=== PATIENT | male | born 1950 | race American Indian/Alaskan Native ===

== ENCOUNTER 2019-03-02 03:24 | Inpatient (IN) | payer MEDICARE, OTHER, SELFPAY ==
[2019-03-02] VITALS (26 sets, daily range): BP systolic 103–134; BP diastolic 69–87; PULSE 58–85; RESP 7–23; TEMP 36.1–37.1; O2SAT 99–100; BMI 19.7
--- NOTE | 2019-03-02 06:22 | PM.HP.1 ---
History of Present Illness Date Patient Seen: 03/02/19 Time Patient Seen: 05:30 Chief complaint: Direct Admit - Alcohol withdrawal Narrative: Maverick Lopez is a 68-year-old male who was a direct admission/transfer from the [facility] emergency department. Request for transfer has been made due to the the patient being intubated and no beds are available in the [facility] intensive care unit. Per the emergency department provider Dr. Wero Tejeda, the patient was found by his to be irritable and with tremors. Per the , the patient drinks approximately 1 pint of whiskey per day and he stopped drinking 3 days ago. She contacted EMS they came and saw the patient and they administered 4 mg of Versed on the way to the hospital. At that time they reported he was hypoxic, tachycardic, and tachypneic and arrived to the emergency department with a Jone coma Scale of 6. Patient History Medical History (Updated 03/02/19 @ 07:21 by HENRY Montgomery) TYRESE (acute kidney injury) (Acute) Hypokalemia (Acute) Alcohol withdrawal seizure with delirium (Acute) Essential hypertension (Acute) Surgical History (Updated 03/02/19 @ 06:25 by HENRY Montgomery) History of appendectomy (Inactive) Meds Home Medications Medication Instructions Recorded Confirmed Type cyclobenzaprine 10 mg PO TID PRN 03/02/19 03/02/19 History diltiazem HCl [DILT-XR] 240 mg PO DAILY 03/02/19 03/02/19 History hydrochlorothiazide 12.5 mg PO DAILY 03/02/19 03/02/19 History losartan 100 mg PO DAILY 03/02/19 03/02/19 History Review of Systems Review of Systems due to endotracheal tube Exam Const General: lethargic and patient mechanically ventilated Nutritional Appearance: average body habitus Orientation: obtunded Limitations: altered mental status HENDC Head: normocephalic Nose: external nose normal Face and sinus: normal facial exam Eyes Pupils: not reactive and pinpoint Neck Neck: normal visual inspection and trachea midline Chest Chest: normal inspection of the chest Resp Effort & Inspection: other (Ventilated) Auscultation: rales bilaterally Cardio Rate: regular rate Rhythm: regular rhythm GI Inspection: normal to inspection Palpation: soft Auscultation: hypoactive bowel sounds Skin General: no rashes or lesions noted, No turgor normal, dry skin and cool/cold (hands bilaterally) Neuro General: obtunded and unable to assess gait Motor: tremor (bilateral hands, twitching of toes bilaterally) Comatose Patient: response to noxious stimuli absent Pupils: Pinpoint: bilateral and Fixed/non-reactive: bilateral Extrem General: normal to inspection Psych Speech and Movement: other (Non-verbal due to sedation) Objective Labs Result Diagrams: 03/02/19 07:20 03/02/19 07:07 Labs: Labs from [facility]: CBC: WBC: 14.0, RBC: 3.63, hemoglobin: 12.2, hematocrit: 37, MCV: 101.9, MCH: 33.6, platelet count: 319 CMP: Sodium: 138, potassium: 2.5, chloride: 96, CO2: 10, anion gap: 32, BUN: 38, creatinine: 2.4, estimated GFR: 27, glucose: 210, calcium: 8.1, total bilirubin: 1.0, AST: 52, ALT: 30, alk-phos: 40, total protein: 8.2, albumin: 3.9, globulin: 4.3, albumin/globulin ratio: 0.9, lipase: 346 Lactic acid: 10.0, TSH: 1.04 UA is negative for UTI with exception abnormal amount of blood Assessment & Plan (1) Hypokalemia: Current visit: Yes Status: Acute (2) TYRESE (acute kidney injury): Current visit: Yes Status: Acute Assessment & Plan narrative: Juan Manuel Lopez is a 68-year-old male who is directly transferred from [facility] Emergency Department for acute alcohol withdrawal requiring sedation and intubation. He has matted to the ICU. 1. Acute alcoholic withdrawal, seizures and tremors, present on admission patient is admitted to the ICU, intubated and on a propofol drip, weaning trial to be determined by the day [facility] protocol 24 hour soft restraints to be renewed daily per provider Patient received Versed in the initial transport to [facility] and at that time his Jone coma Scale was 6. Current [place] coma scale is calculated to be 5. Patient received most of 1 banana bag that was initiated in the [facility] ED. He will continue daily supplementation with niacin, folic acid, and thiamine through his OG tube. Vent settings initiated at [facility] was SIMV mode, FiO2: 100, VT: 550, PEEP: 5, pressure support: 10, respirations: 16 2. Sepsis likely secondary to pneumonia and acute alcohol withdrawal with a SOFA score of 6 X-ray indicates that the patient likely aspirated. Patient will receive IV ceftriaxone 1 g daily and IV azithromycin 500 mg once daily and clindamycin 600 mg IV q.6 hours Repeat lactic acid, CBC and CMP this morning Respiratory panel ordered for this patient MRSA screen pending 3. Acute kidney injury with a creatinine of 2.5, present on admission Patient will be aggressively hydrated and his renal function monitored on a daily basis. It is unknown if this is his baseline. 4. Hypokalemia, acute, present on admission Patient received KCl 30 mEq on route, probably verbal order order per [facility] MD. This was not documented as and administered medication on their transfer paperwork. Repeat CMP this morning and address if needed. 5. Elevated glucose, new, acute, present on admission Patient is NPO and will have glucose checks q.6 hours Low-dose correctional insulin q.6 hours 6. Essential hypertension, chronic, not present on admission Antihypertensive medications are held. Current prescriptions were documented in the chart by nursing from bottles that were brought with the patient by EMS. We will need to obtain old records from the patient's current PCP. Patient is admitted inpatient as his/her stay is anticipated to exceed 2 midnights. FEN: IV normal saline at 175 mL/hour, NPO, CMP is pending this morning VTE Prophylaxis: Heparin 5000 units b.i.d. Enoxaparin not indicated due to current renal function. Disposition: Unknown at this time Code status: Full Code Admission time: 90 minutes Meds reconciled: Partial based on medications sent with the patient. Time Spent With Patient Time with patient: 15-24 minutes Scores GCS Jone coma scale eye opening: None [place] coma scale verbal response: None [place] coma scale motor response: Abnormal flexion [place] coma scale total score: 5 SOFA PaO2/FIO2: >=400 mmHg Platelets: >= 150 Bilirubin: < 1.2 mg/dL Hypotension: MAP >= 70 mmHg Jone Coma Scale: <6 Renal: Creatinine 2.0-3.4 mg/dL SOFA Score: 6 Quality VTE Deep Vein Thrombosis/Pulmonary Embolism Present on Admission: No
--- NOTE | 2019-03-02 06:27 | P.HP_ITS ---
History of Present Illness Date Patient Seen: 03/02/19 Time Patient Seen: 05:30 Chief complaint: Direct Admit - Alcohol withdrawal Narrative: Maverick Lopez is a 68-year-old male who was a direct admission/transfer from the [facility] emergency department. Request for transfer has been made due to the the patient being intubated and no beds are available in the [facility] intensive care unit. Per the emergency department provider Dr. Wero Tejeda, the patient was found by his to be irritable and with tremors. Per the , the patient drinks approximately 1 pint of whiskey per day and he stopped drinking 3 days ago. She contacted EMS they came and saw the patient and they administered 4 mg of Versed on the way to the hospital. At that time they reported he was hypoxic, tach ycardic, and tachypneic and arrived to the emergency department with a Jone coma Scale of 6. Patient History Medical History (Updated 03/02/19 @ 07:21 by HENRY Montgomery) TYRESE (acute kidney injury) (Acute) Hypokalemia (Acute) Alcohol withdrawal seizure with delirium (Acute) Essential hypertension (Acute) Surgical History (Updated 03/02/19 @ 06:25 by HENRY Montgomery) History of appendectomy (Inactive) Meds Home Medications Medication Instructions Recorded Confirmed Type cyclobenzaprine 10 mg PO TID PRN 03/02/19 03/02/19 History diltiazem HCl [DILT-XR] 240 mg PO DAILY 03/02/19 03/02/19 History hydrochlorothiazide 12.5 mg PO DAILY 03/02/19 03/02/19 History losartan 100 mg PO DAILY 03/02/19 03/02/19 History Review of Systems Review of Systems due to endotracheal tube Exam Const General: lethargic and patient mechanically ventilated Nutritional Appearance: average body habitus Orientation: obtunded Limitations: altered mental status HENWI Head: normocephalic Nose: external nose normal Face and sinus: normal facial exam Eyes Pupils: not reactive and pinpoint Neck Neck: normal visual inspection and trachea midline Chest Chest: normal inspection of the chest Resp Effort & Inspection: other (Ventilated) Auscultation: rales bilaterally Cardio Rate: regular rate Rhythm: regular rhythm GI Inspection: normal to inspection Palpation: soft Auscultation: hypoactive bowel sounds Skin General: no rashes or lesions noted, No turgor normal, dry skin and cool/cold (hands bilaterally) Neuro General: obtunded and unable to assess gait Motor: tremor (bilateral hands, twitching of toes bilaterally) Comatose Patient: response to noxious stimuli absent Pupils: Pinpoint: bilateral and Fixed/non-reactive: bilateral Extrem General: normal to inspection Psych Speech and Movement: other (Non-verbal due to sedation) Objective Labs Result Diagrams: 03/02/19 07:20 03/02/19 07:07 Labs: Labs from [facility]: CBC: WBC: 14.0, RBC: 3.63, hemoglobin: 12.2, hematocrit: 37, MCV: 101.9, MCH: 33.6, platelet count: 319 CMP: Sodium: 138, potassium: 2.5, chloride: 96, CO2: 10, anion gap: 32, BUN: 38, creatinine: 2.4, estimated GFR: 27, glucose: 210, calcium: 8.1, total bilirubin: 1.0, AST: 52, ALT: 30, alk-phos: 40, total protein: 8.2, albumin: 3.9, globulin: 4.3, albumin/globulin ratio: 0.9, lipase: 346 Lactic acid: 10.0, TSH: 1.04 UA is negative for UTI with exception abnormal amount of blood Assessment & Plan (1) Hypokalemia: Current visit: Yes Status: Acute (2) TYRESE (acute kidney injury): Current visit: Yes Status: Acute Assessment & Plan narrative: Juan Manuel Lopez is a 68-year-old male who is directly transferred from [facility] Emergency Department for acute alcohol withdrawal requiring sedation and intubation. He has matted to the ICU. 1. Acute alcoholic withdrawal, seizures and tremors, present on admission * patient is admitted to the ICU, intubated and on a propofol drip, weaning trial to be determined by the day hospitalist * [place] protocol * 24 hour soft restraints to be renewed daily per provider * Patient received Versed in the initial transport to [facility] and at that time his Jone coma Scale was 6. Current [place] coma scale is calculated to be 5. * Patient received most of 1 banana bag that was initiated in the [facility] ED. He will continue daily supplementation with niacin, folic acid, and thiamine through his OG tube. * Vent settings initiated at [facility] was SIMV mode, FiO2: 100, VT: 550, PEEP: 5, pressure support: 10, respirations: 16 2. Sepsis likely secondary to pneumonia and acute alcohol withdrawal with a SOFA score of 6 * X-ray indicates that the patient likely aspirated. * Patient will receive IV ceftriaxone 1 g daily and IV azithromycin 500 mg once daily and clindamycin 600 mg IV q.6 hours * Repeat lactic acid, CBC and CMP this morning * Respiratory panel ordered for this patient * MRSA screen pending 3. Acute kidney injury with a creatinine of 2.5, present on admission * Patient will be aggressively hydrated and his renal function monitored on a daily basis. * It is unknown if this is his baseline. 4. Hypokalemia, acute, present on admission * Patient received KCl 30 mEq on route, probably verbal order order per [facility] MD. This was not documented as and administered medication on their transfer paperwork. * Repeat CMP this morning and address if needed. 5. Elevated glucose, new, acute, present on admission * Patient is NPO and will have glucose checks q.6 hours * Low-dose correctional insulin q.6 hours 6. Essential hypertension, chronic, not present on admission * Antihypertensive medications are held. * Current prescriptions were documented in the chart by nursing from at were brought with the patient by EMS. * We will need to obtain old records from the patient's current PCP. Patient is admitted inpatient as his/her stay is anticipated to exceed 2 midnights. FEN: IV normal saline at 175 mL/hour, NPO, CMP is pending this morning VTE Prophylaxis: Heparin 5000 units b.i.d. Enoxaparin not indicated due to current renal function. Disposition: Unknown at this time Code status: Full Code Admission time: 90 minutes Meds reconciled: Partial based on medications sent with the patient. Time Spent With Patient Time with patient: 15-24 minutes Scores GCS Jone coma scale eye opening: None Jone coma scale verbal response: None [place] coma scale motor response: Abnormal flexion [place] coma scale total score: 5 SOFA PaO2/FIO2: >=400 mmHg Platelets: >= 150 Bilirubin: < 1.2 mg/dL Hypotension: MAP >= 70 mmHg Jone Coma Scale: <6 Renal: Creatinine 2.0-3.4 mg/dL SOFA Score: 6 Quality VTE Deep Vein Thrombosis/Pulmonary Embolism Present on Admission: No
--- NOTE | 2019-03-02 06:47 | PC.NURSE ---
Patient is direct admit from [facility], arrived to ICU at 0530. Vented FIO2 40% TV 550 PEEP 5 RR 14, ETT 7.5, 26 at teeth. Propofol gtt set at 30mcg/kg/min. NS at 125ml/hr initially until Angelic FIGUEROA enters admit orders, she is in room with patient. SR, BP 125/80, afebrile, SpO2 100%, breath sounds slightly coarse but clear. OGT to Sunni GUTIERREZ patent with clear UOP. Clothes and medical cards in closet, medications sent to pharmacy. No family available at this time. Soft wrist restraints on.
[2019-03-02 07:31] LABS: Add Manual Diff / Slide Review NO; Basophils Absolute Auto 0 /uL (0-100); Basophils Percent Auto 0.1 % (0-2); Eosinophils Absolute Auto 0 /uL (0-450); Eosinophils Percent Auto 0.1 % (2-4); Hemoglobin 11.2 g/dL (13.5-17.5); Lymphocytes Absolute Auto 1100 /uL (1100-4500); Lymphocytes Percent Auto 6.6 % (25-40); Mean Corpuscular Hemoglobin 33.9 PG (26-34); Mean Corpuscular Volume 99.7 fL (80-100); Monocytes Absolute Auto 1000 /uL (0-900); Monocytes Percent Auto 5.5 % (3-14); Neutrophils Absolute Auto 15100 /uL (1500-7000); Neutrophils Percent Auto 87.7 % (50-75); Platelet Count 245 X10^3/uL (150-400); Red Blood Cell Count 3.31 X10^6/uL (4.5-5.9); Red Cell Distribution Width 12.4 % (11.6-14.8); White Blood Cell Count 17.2 X10^3/uL (4.5-11.0)
[2019-03-02 07:34] LABS: Lactate (Lactic Acid) 1.3 mmol/L (0.7-2.1)
[2019-03-02 07:35] LABS: Alanine Aminotransferase 27 IU/L (21-72); Albumin 3.9 g/dL (3.5-5.0); Albumin Globulin Ratio 1.3 (1.0-2.8); Alkaline Phosphatase 41 U/L (38-126); Aspartate Aminotransferase 37 IU/L (17-59); BUN Creatinine Ratio 20.7 (6-22); Bilirubin Total 0.8 mg/dL (0.2-1.3); Blood Urea Nitrogen 29 mg/dL (9-20); Calcium 7.4 mg/dL (8.4-10.2); Carbon Dioxide 21 mmol/L (22-32); Chloride 103 mmol/L (98-107); Estimated Glomerular Filt Rate 50.7 mL/min (>60); Globulin 3.1 g/dL (1.7-4.1); Glucose 74 mg/dL (80-110); HEMOLYSIS < 15 (0-50); Sodium 142 mmol/L (137-145)
[2019-03-02] MEDS: SODIUM CHLORIDE 0.9% 1,000 ML 175 ML IV (07:42)
[2019-03-02] MEDS: PANTOPRAZOLE 40 MG VIAL IV (07:42)
[2019-03-02 07:43] LABS: Influenza A and B by PCR Rapid Negative (Negative)
[2019-03-02] MEDS: HEPARIN 5,000 UNIT/ML VIAL 5000 UNIT SUBCUT ×2 (07:44→20:31)
[2019-03-02] MEDS: AZITHROMYCIN 500 MG in DEXTROSE 5% IN WATER 250 ML IV (07:44)
[2019-03-02 07:56] LABS: Potassium 2.1 mmol/L (3.4-5.1)
[2019-03-02 07:58] LABS: Procalcitonin 0.23 ng/mL (<0.5)
--- NOTE | 2019-03-02 08:10 | DI.RAD.S_ITS ---
PROCEDURE: XR CHEST 1V INDICATIONS: check OG tube/check atelectasis TECHNIQUE: One view of the chest was acquired. COMPARISON: None. FINDINGS: Surgical changes and devices: Tip of ETT is 40 mm above the sabino. NGT extends to the gastroesophageal junction. Lungs and pleura: Lungs are clear. No pleural effusions or pneumothorax. Mediastinum: Mediastinal contours appear normal. Heart size is normal. Bones and chest wall: No suspicious bony lesions. Overlying soft tissues appear unremarkable. IMPRESSION: 1. ETT is an infected location. 2. Tip of the NGT is at the gastroesophageal junction. Dictated by: Arlet Sanderson M.D. on 03/02/2019 at 7:28 Approved by: Arlet Sanderson M.D. on 03/02/2019 at 7:29
[2019-03-02] MEDS: LORazepam 2 MG/ML INJ IV ×4 (08:17→23:30)
[2019-03-02] MEDS: PROPOFOL 1,000 MG/100 ML VIAL 9.075 MG IV (08:33)
[2019-03-02] MEDS: POTASSIUM CHLORIDE IV (08:35)
[2019-03-02] MEDS: SODIUM CHLORIDE 0.9% IV (08:35)
--- NOTE | 2019-03-02 08:35 | CM.DANOTE ---
Addendum entered by ALMA Wall 03/02/19 09:57: ADD: Per MD and RT, reducing pt's sedation to trial possible extubation today. Pt's acute renal failure improving with fluids and unclear if pt has pneumonia but will scan pt again to confirm. SW called pt's spouse Abbie at home and explained role and spouse was very talkative and appreciative of the call. Spouse confirms that pt is typically Independent with ADL's at baseline and drives and does not sound like he is currently working. PCP is Dr. Niels Stinson at [facility]. Pt has no hx of withdrawals or need of intubation in the past and spouse was quite shocked at how sick the pt currently is. Spouse was informative and direct with discussing her and the pt's regular evening drinking together and confirms that she feels that they drink too much. Pt typically drinks about a pint of whiskey with coke a night but recently has increased his amount of alcohol. Pt also smokes marijuana regularly to help with his chronic back/neck pain but denies any further drug use. Pt has no hx of alcohol treatment and is not enrolled in any supportive services like counseling although he participates in Physical Therapy for chronic pain. Spouse states that she noticed pt's decline in health starting about a week ago with become more tremulous and weak and about 3 days ago was not eating or drinking much and was at that point not even drinking alcohol. Pt couldn't ambulate on his own and spouse had to help him with urinating and pt's urine was getting darker in color and pt appeared to be having some visual hallucinations. EMS was finally called and pt was brought to [facility] and intubated. Spouse not planning to be bedside today as she has not slept much in the past couple days and currently has a healing dislocated shoulder due to a fall. Plan: SW to follow closely after pt extubated for bedside assessment for d/c planning needs and possible resources for alcohol support. ALMA Wall Original Note: Patient is a 68 year old male who was admitted early this morning 03/02/19 for Alcohol Withdrawal. Pt has [facility] and [facility] for insurance and his PCP is not listed. EMR was reviewed. Per MD, pt was a direct admit from [facility] as pt was intubated due to alcohol withdrawal symptoms affecting his airways. Per RN, pt currently still intubated with possible attempt at extubation later today and currently on propofol. No family bedside at this time. Plan: SW to follow for d/c planning discussion with family while waiting for extubation and CD assessment with pt when medically appropriate. ALMA Wall Discharge Planning/Care Management CM Discharge Assessment Start: 03/02/19 08:33 Freq: Status: Active Protocol: Document 03/02/19 08:33 BF (Rec: 03/02/19 08:35 BF [id number]) Discharge Planning Assessment Assigned Learning Center Instructor ALMA Longoria Advance Directives? No History Provided By Significant Other Medical Record Has Patient been admitted in last 30 No days? Prior Living Arrangements House Household Members spouse Type of transporation used prior to Drives own vehicle admit Independent with ADL's Yes Is patient alert and oriented? Yes Caregiver for Another No Comment Pending pt's medical course Discharge Plan Home Transportation Arrangement Spouse likely able to provide transport at d/c pending destination Referrals Initiated None needed Whiteboard Updated in Patient Room with Yes name and ext. # of Learning Center Instructor Review Status In Process Please Provide Date Initial DC 03/02/19 Assessment Was Performed Next Review Type Continued Stay Review
[2019-03-02] MEDS: CLINDAMYCIN 600 MG/50 ML PIGGYBACK 50 MG IV ×3 (08:52→20:01)
[2019-03-02 09:05] LABS: Adenovirus Not Detected (Not Detect); Coronavirus 229E Not Detected (Not Detect); Coronavirus HKU1 Not Detected (Not Detect); Coronavirus NL 63 Not Detected (Not Detect); Coronavirus OC43 Not Detected (Not Detect)
[2019-03-02 09:06] LABS: Bordetella pertussis Not Detected (Not Detect); Chlamydophila pneumoniae Not Detected (Not Detect); Human Metapneumovirus Not Detected (Not Detect); Human Rhinovirus/Enterovirus Not Detected (Not Detect); Influenza A Not Detected (Not Detect); Influenza B Not Detected (Not Detect); Mycoplasma pneumoniae Not Detected (Not Detect); Parainfluenza Virus 1 Not Detected (Not Detect); Parainfluenza Virus 2 Not Detected (Not Detect); Parainfluenza Virus 3 Not Detected (Not Detect); Parainfluenza Virus 4 Not Detected (Not Detect); Respiratory Syncytial Virus Not Detected (Not Detect)
[2019-03-02 09:21] LABS: HCO3 ABG 19 mmol/L (22-26); Oxygen Saturation ABG 100 % (95-100); PCO2 ABG 26.7 mmHg (35-45); PO2 ABG 180 mmHg (80-100); TCO2 ABG 19 mmol/L (21-31); pH ABG 7.45 (7.35-7.45)
[2019-03-02] MEDS: POTASSIUM CHLORIDE 20 MEQ/15 ML UDC 40 MEQ PO (09:31)
--- NOTE | 2019-03-02 13:33 | PC.NURSE ---
Day Shift Note Sedation vacation at 0935 - pt opening eyes spontaneously, able to follow directions and nod/shake head in response to questions, tracking with eyes. CPAP trial attempted x2 with longest trial lasting about 20 min and ending due to low RR rate, pt requiring frequent reminders/stimulation to breathe independently. Dr. Quintero updated. CIWA scores ranging from 2 (post Ativan) to 15 this shift. Pt becomes very tremulous, generalized diaphoresis, and restlessness - resolves after Ativan administration. Propofol gtt restarted 1245 at 15 mcg/kg/min. Restraints in place to bilateral wrists. K rider infusing for critical K of 2.1. Moeller catheter in place and draining clear yellow urine. OG tube to LIS. Bed alarm on and seizures pads in place.
[2019-03-02] MEDS: SODIUM CHLORIDE 0.9% 1,000 ML 120 ML IV (14:18)
[2019-03-02 16:28] LABS: BUN Creatinine Ratio 17.5 (6-22); Blood Urea Nitrogen 21 mg/dL (9-20); Calcium 6.5 mg/dL (8.4-10.2); Carbon Dioxide 22 mmol/L (22-32); Chloride 109 mmol/L (98-107); Estimated Glomerular Filt Rate > 60.0 mL/min (>60); Glucose 89 mg/dL (80-110); HEMOLYSIS < 15 (0-50); Magnesium 1.1 mg/dL (1.6-2.3); Sodium 141 mmol/L (137-145)
[2019-03-02 17:46] LABS: Phosphorous 1.8 mg/dL (2.3-3.7)
[2019-03-02] MEDS: MAGNESIUM SULFATE 2 GM/50 ML PIGGYBACK IV (17:48)
[2019-03-02] MEDS: CALCIUM GLUCONATE 9.3 MEQ in SODIUM CHLORIDE 0.9% 50 ML 140 ML IV (17:48)
[2019-03-02 18:29] LABS: Troponin I 0.032 ng/mL (0.01-0.034)
[2019-03-02] MEDS: PROPOFOL 1,000 MG/100 ML VIAL 7.26 MG IV (18:31)
[2019-03-02] MEDS: DOXYCYCLINE 100 MG in SODIUM CHLORIDE 0.9% 100 ML IV (18:47)
[2019-03-02] MEDS: POTASSIUM PHOSPHATE 15 MMOL in DEXTROSE 5% IN WATER 250 ML 63.75 ML IV (20:31)
[2019-03-02 22:18] LABS: Blood Urea Nitrogen 17 mg/dL (9-20); Calcium 7.2 mg/dL (8.4-10.2); Carbon Dioxide 19 mmol/L (22-32); Chloride 110 mmol/L (98-107); Estimated Glomerular Filt Rate > 60.0 mL/min (>60); Glucose 119 mg/dL (80-110); HEMOLYSIS < 15 (0-50); Magnesium 1.8 mg/dL (1.6-2.3); Sodium 140 mmol/L (137-145)
[2019-03-02 22:29] LABS: Potassium 2.7 mmol/L (3.4-5.1)
[2019-03-02] MEDS: KCL 40 MEQ IN NS 1,000 ML 120 MEQ IV (22:51)
[2019-03-03] VITALS (35 sets, daily range): BP systolic 105–149; BP diastolic 57–90; PULSE 57–99; RESP 12–20; TEMP 35.9–37.1; O2SAT 97–100; BMI 20.5
[2019-03-03] MEDS: CLINDAMYCIN 600 MG/50 ML PIGGYBACK 50 MG IV ×4 (01:22→20:43)
[2019-03-03] MEDS: PROPOFOL 1,000 MG/100 ML VIAL 12.705 MG IV ×2 (02:45→07:52)
[2019-03-03] MEDS: LORazepam 2 MG/ML INJ IV ×2 (03:54→18:44)
[2019-03-03 05:05] LABS: Add Manual Diff / Slide Review NO; Basophils Absolute Auto 0 /uL (0-100); Basophils Percent Auto 0.5 % (0-2); Eosinophils Absolute Auto 100 /uL (0-450); Eosinophils Percent Auto 0.6 % (2-4); Hematocrit 26.5 % (41-53); Hemoglobin 9.2 g/dL (13.5-17.5); Lymphocytes Absolute Auto 1200 /uL (1100-4500); Lymphocytes Percent Auto 12.9 % (25-40); Mean Corpuscular HGB Conc 34.9 % (30-36); Mean Corpuscular Hemoglobin 34.7 PG (26-34); Mean Corpuscular Volume 99.5 fL (80-100); Monocytes Absolute Auto 600 /uL (0-900); Monocytes Percent Auto 6.6 % (3-14); Neutrophils Absolute Auto 7100 /uL (1500-7000); Neutrophils Percent Auto 79.4 % (50-75); Platelet Count 201 X10^3/uL (150-400); Red Blood Cell Count 2.66 X10^6/uL (4.5-5.9); Red Cell Distribution Width 12.7 % (11.6-14.8); White Blood Cell Count 8.9 X10^3/uL (4.5-11.0)
[2019-03-03 05:12] LABS: Alanine Aminotransferase 20 IU/L (21-72); Albumin 2.9 g/dL (3.5-5.0); Alkaline Phosphatase 37 U/L (38-126); Aspartate Aminotransferase 27 IU/L (17-59); BUN Creatinine Ratio 16.7 (6-22); Bilirubin Total 0.5 mg/dL (0.2-1.3); Blood Urea Nitrogen 15 mg/dL (9-20); Calcium 6.9 mg/dL (8.4-10.2); Carbon Dioxide 19 mmol/L (22-32); Chloride 110 mmol/L (98-107); Estimated Glomerular Filt Rate > 60.0 mL/min (>60); Globulin 2.8 g/dL (1.7-4.1); Glucose 100 mg/dL (80-110); HEMOLYSIS < 15 (0-50); Potassium 2.8 mmol/L (3.4-5.1); Sodium 140 mmol/L (137-145); Total Protein 5.7 g/dL (6.3-8.2)
[2019-03-03 05:18] LABS: Magnesium 1.5 mg/dL (1.6-2.3); Phosphorous 2.3 mg/dL (2.3-3.7)
[2019-03-03] MEDS: CEFTRIAXONE 1 GM/50 ML FROZ.PIGGY IV (05:36)
[2019-03-03] MEDS: POTASSIUM CHLORIDE 40 MEQ in SODIUM CHLORIDE 0.9% 500 ML 130 ML IV (06:35)
[2019-03-03] MEDS: DOXYCYCLINE 100 MG in SODIUM CHLORIDE 0.9% 100 ML IV ×2 (06:35→18:39)
--- NOTE | 2019-03-03 06:46 | PC.NURSE ---
NOC Shift: Pt vented day 2 ETOH withdrawal. Pt sedated with propofol gtt and CIWA protocol. Labile appropriateness. Most of the time pt nods yes, no appropriately, follows commands, other times he is restless and agitated w/o being able to console. CIWA 9 -15 thru shift. VSS, SB NSR on tele. Diaphoretic w/o fever. Increasing secretions from ETT thru shift and frequency of SXN. Thick white to yellow sectretions, coarse to fine crackles to clear BS. On ABX tx. Moeller minimal UO and electrolyte imbalance this AM, HENRY Lucas aware and IV replacements ordered. ICU status.
--- NOTE | 2019-03-03 07:23 | DI.RAD.S_ITS ---
PROCEDURE: XR CHEST 1V INDICATIONS: INTUBATED. PNEUMONIA TECHNIQUE: One view of the chest was acquired. COMPARISON: [facility], CR, XR CHEST 1V, 03/02/2019, 8:18. FINDINGS: Surgical changes and devices: Endotracheal tube and esophagogastric tube in normal position.. Lungs and pleura: Lungs are abnormal with what appears to be a relatively mild pneumonia pattern defined the heart at the left lung base.. No pleural effusions or pneumothorax. Mediastinum: Mediastinal contours appear normal. Heart size is normal. Bones and chest wall: No suspicious bony lesions. Overlying soft tissues appear unremarkable. IMPRESSION: Mild or early pneumonia retrocardiac left lower lobe, endotracheal and esophagogastric tube positioning normal. Dictated by: Minor Marie M.D. on 03/03/2019 at 8:07 Approved by: Minor Marie M.D. on 03/03/2019 at 8:08
--- NOTE | 2019-03-03 07:29 | PM.PN.1 ---
Subjective Date Patient Seen: 03/03/19 Time Patient Seen: 07:29 Interval history: Follow-up on acute respiratory failure secondary to alcohol withdrawals and possible pneumonia. Patient seen at bedside. He is still intubated on propofol drip. Patient is RASS -1, easily arousable. As per nursing staff, patient becomes diaphoretic, agitated, and tachypneic when propofol is weaned off and requires Ativan pushes. This morning, however, patient is following commands, nodding yes or no questions. Vital signs are currently stable. As patient's EKG showed QTC prolongation yesterday, azithromycin has been discontinued and antibiotics were switched to ceftriaxone, doxycycline, and clindamycin. Patient was found to have severe electrolyte abnormalities, including hypocalcemia, hypokalemia, hypomagnesemia, and hypophosphatemia, all consistent with severe alcohol abuse. He is currently being repleted. Exam Vital Signs (past 8 hours): - 03/03/19 00:00 03/03/19 01:00 03/03/19 02:00 Temperature 97.5 F L Pulse Rate 75 61 99 H Respiratory Rate 16 14 14 Blood Pressure 130/79 110/68 111/70 Pulse Oximetry 100 100 99 03/03/19 03:00 03/03/19 04:00 03/03/19 05:00 Temperature 97.9 F 96.6 F L Pulse Rate 58 L 64 59 L Respiratory Rate 14 16 14 Blood Pressure 111/73 123/57 L 106/70 Pulse Oximetry 100 100 100 03/03/19 06:00 Temperature Pulse Rate 60 Respiratory Rate 14 Blood Pressure 122/78 Pulse Oximetry 100 Fraction of Inspired Oxygen 0.30 Oxygen Delivery Method Mechanical Ventilation Narrative Exam Narrative: General: RASS -1, following commands, intubated HEENT: PERRLA bilaterally, EOMI bilaterally, ET tube and OG tube in place Neck: Supple, no LAD or JVD CV: Regular rate rhythm, no murmurs or gallops appreciated Respiratory: Coarse breath sounds appreciated at the bases bilaterally with copious clear secretions GI: Positive bowel sounds in all 4 quadrants, no organomegaly, nontender, nondistended Musculoskeletal: Moves all extremities Skin: No bruising or lesions Extremities: No edema appreciated. 2+ pulses Neuro: RASS -1, following commands Psych: Patient becomes agitated and diaphoretic when propofol is weaned of Objective Labs Result Diagrams: 03/03/19 04:50 03/03/19 04:50 Labs: Laboratory Results - last 24 hr 03/02/19 03/02/19 03/02/19 05:45 06:40 06:40 WBC RBC Hgb Hct MCV MCH MCHC RDW Plt Count Neut % (Auto) Lymph % (Auto) [place] % (Auto) Eos % (Auto) Baso % (Auto) Neut # (Auto) Lymph # (Auto) [place] # (Auto) Eos # (Auto) Baso # (Auto) ABG pH ABG pCO2 ABG pO2 ABG HCO3 ABG Total CO2 ABG O2 Saturation ABG Base Excess FiO2 Sodium Potassium Chloride Carbon Dioxide BUN Creatinine Estimated GFR BUN/Creatinine Ratio Glucose Lactate Calcium Phosphorus Magnesium Total Bilirubin AST ALT Alkaline Phosphatase Troponin I Total Protein Albumin Globulin Albumin/Globulin Ratio Procalcitonin Nasal Screen MRSA (PCR) Negative for mrsa Chlamy pneumoniae PCR Not detected Adenovirus (PCR) Not detected B.parapertussis DNA PCR Not detected Coronavirus OC43 (PCR) Not detected Coronavirus HKU1 (PCR) Not detected Coronavirus 229E (PCR) Not detected Coronavirus NL63 (PCR) Not detected Human Metapneumovir PCR Not detected Influenza Type A (PCR) Not detected Influenza Type B (PCR) Not detected Influenza A & B (PCR) Negative M. pneumoniae (PCR) Not detected Parainfluenza 1 (PCR) Not detected Parainfluenza 2 (PCR) Not detected Parainfluenza 3 (PCR) Not detected Parainfluenza 4 (PCR) Not detected RSV (PCR) Not detected Entero/Rhino (PCR) Not detected 03/02/19 03/02/19 03/02/19 07:07 07:07 07:07 WBC RBC Hgb Hct MCV MCH MCHC RDW Plt Count Neut % (Auto) Lymph % (Auto) [place] % (Auto) Eos % (Auto) Baso % (Auto) Neut # (Auto) Lymph # (Auto) [place] # (Auto) Eos # (Auto) Baso # (Auto) ABG pH ABG pCO2 ABG pO2 ABG HCO3 ABG Total CO2 ABG O2 Saturation ABG Base Excess FiO2 Sodium 142 Potassium 2.1 L* Chloride 103 Carbon Dioxide 21 L BUN 29 H Creatinine 1.40 H Estimated GFR 50.7 L BUN/Creatinine Ratio 20.7 Glucose 74 L Lactate 1.3 Calcium 7.4 L Phosphorus Magnesium Total Bilirubin 0.8 AST 37 ALT 27 Alkaline Phosphatase 41 Troponin I Total Protein 7.0 Albumin 3.9 Globulin 3.1 Albumin/Globulin Ratio 1.3 Procalcitonin 0.23 Nasal Screen MRSA (PCR) Chlamy pneumoniae PCR Adenovirus (PCR) B.parapertussis DNA PCR Coronavirus OC43 (PCR) Coronavirus HKU1 (PCR) Coronavirus 229E (PCR) Coronavirus NL63 (PCR) Human Metapneumovir PCR Influenza Type A (PCR) Influenza Type B (PCR) Influenza A & B (PCR) M. pneumoniae (PCR) Parainfluenza 1 (PCR) Parainfluenza 2 (PCR) Parainfluenza 3 (PCR) Parainfluenza 4 (PCR) RSV (PCR) Entero/Rhino (PCR) 03/02/19 03/02/19 03/02/19 07:20 08:34 16:10 WBC 17.2 H RBC 3.31 L Hgb 11.2 L Hct 33.0 L MCV 99.7 MCH 33.9 MCHC 34.0 RDW 12.4 Plt Count 245 Neut % (Auto) 87.7 H Lymph % (Auto) 6.6 L [place] % (Auto) 5.5 Eos % (Auto) 0.1 L Baso % (Auto) 0.1 Neut # (Auto) 51606 H Lymph # (Auto) 1100 [place] # (Auto) 1000 H Eos # (Auto) 0 Baso # (Auto) 0 ABG pH 7.45 ABG pCO2 26.7 L ABG pO2 180 H ABG HCO3 19 L ABG Total CO2 19 L ABG O2 Saturation 100 ABG Base Excess -5.0 L FiO2 0.40 Sodium 141 Potassium 3.0 L Chloride 109 H Carbon Dioxide 22 BUN 21 H Creatinine 1.20 Estimated GFR > 60.0 BUN/Creatinine Ratio 17.5 Glucose 89 Lactate Calcium 6.5 L Phosphorus Magnesium 1.1 L Total Bilirubin AST ALT Alkaline Phosphatase Troponin I Total Protein Albumin Globulin Albumin/Globulin Ratio Procalcitonin Nasal Screen MRSA (PCR) Chlamy pneumoniae PCR Adenovirus (PCR) B.parapertussis DNA PCR Coronavirus OC43 (PCR) Coronavirus HKU1 (PCR) Coronavirus 229E (PCR) Coronavirus NL63 (PCR) Human Metapneumovir PCR Influenza Type A (PCR) Influenza Type B (PCR) Influenza A & B (PCR) M. pneumoniae (PCR) Parainfluenza 1 (PCR) Parainfluenza 2 (PCR) Parainfluenza 3 (PCR) Parainfluenza 4 (PCR) RSV (PCR) Entero/Rhino (PCR) 03/02/19 03/02/19 03/02/19 16:10 16:10 22:02 WBC RBC Hgb Hct MCV MCH MCHC RDW Plt Count Neut % (Auto) Lymph % (Auto) [place] % (Auto) Eos % (Auto) Baso % (Auto) Neut # (Auto) Lymph # (Auto) [place] # (Auto) Eos # (Auto) Baso # (Auto) ABG pH ABG pCO2 ABG pO2 ABG HCO3 ABG Total CO2 ABG O2 Saturation ABG Base Excess FiO2 Sodium 140 Potassium 2.7 L* Chloride 110 H Carbon Dioxide 19 L BUN 17 Creatinine 1.00 Estimated GFR > 60.0 BUN/Creatinine Ratio 17.0 Glucose 119 H Lactate Calcium 7.2 L Phosphorus 1.8 L Magnesium 1.8 Total Bilirubin AST ALT Alkaline Phosphatase Troponin I 0.032 Total Protein Albumin Globulin Albumin/Globulin Ratio Procalcitonin Nasal Screen MRSA (PCR) Chlamy pneumoniae PCR Adenovirus (PCR) B.parapertussis DNA PCR Coronavirus OC43 (PCR) Coronavirus HKU1 (PCR) Coronavirus 229E (PCR) Coronavirus NL63 (PCR) Human Metapneumovir PCR Influenza Type A (PCR) Influenza Type B (PCR) Influenza A & B (PCR) M. pneumoniae (PCR) Parainfluenza 1 (PCR) Parainfluenza 2 (PCR) Parainfluenza 3 (PCR) Parainfluenza 4 (PCR) RSV (PCR) Entero/Rhino (PCR) 03/03/19 03/03/19 03/03/19 04:50 04:50 04:50 WBC 8.9 RBC 2.66 L Hgb 9.2 L Hct 26.5 L MCV 99.5 MCH 34.7 H MCHC 34.9 RDW 12.7 Plt Count 201 Neut % (Auto) 79.4 H Lymph % (Auto) 12.9 L [place] % (Auto) 6.6 Eos % (Auto) 0.6 L Baso % (Auto) 0.5 Neut # (Auto) 7100 H Lymph # (Auto) 1200 [place] # (Auto) 600 Eos # (Auto) 100 Baso # (Auto) 0 ABG pH ABG pCO2 ABG pO2 ABG HCO3 ABG Total CO2 ABG O2 Saturation ABG Base Excess FiO2 Sodium 140 Potassium 2.8 L Chloride 110 H Carbon Dioxide 19 L BUN 15 Creatinine 0.90 Estimated GFR > 60.0 BUN/Creatinine Ratio 16.7 Glucose 100 Lactate Calcium 6.9 L Phosphorus 2.3 Magnesium 1.5 L Total Bilirubin 0.5 AST 27 ALT 20 L Alkaline Phosphatase 37 L Troponin I Total Protein 5.7 L Albumin 2.9 L Globulin 2.8 Albumin/Globulin Ratio 1.0 Procalcitonin Nasal Screen MRSA (PCR) Chlamy pneumoniae PCR Adenovirus (PCR) B.parapertussis DNA PCR Coronavirus OC43 (PCR) Coronavirus HKU1 (PCR) Coronavirus 229E (PCR) Coronavirus NL63 (PCR) Human Metapneumovir PCR Influenza Type A (PCR) Influenza Type B (PCR) Influenza A & B (PCR) M. pneumoniae (PCR) Parainfluenza 1 (PCR) Parainfluenza 2 (PCR) Parainfluenza 3 (PCR) Parainfluenza 4 (PCR) RSV (PCR) Entero/Rhino (PCR) Assessment & Plan Assessment & Plan narrative: 68yo M with PMH known hypertension and alcohol abuse was [place] [facility] for acute alcohol withdrawal requiring sedation and intubation. He was admitted to the ICU for further management. 1. Acute alcohol withdrawal with delirium tremens, present on admission, on going -requiring intubation [place] [facility] -patient is doing well on propofol drip, however becomes diaphoretic and agitated when weaned off, requiring frequent Ativan pushes -will continue sedation holidays and VLTs if patient tolerates it -otherwise will keep patient intubated until he is out of DT phase and is able to be extubated. Vent settings 06/02/14 -Continue CIWA protocol and soft restraints -Pending this am ABG 2. Acute Respiratory failure, due to Acute alcohol withdrawals vs pneumonia, present on admission, Improving -Currently on mechanical ventilation with vent settings 06/02/14 -Continue pulmonary toiletting with suctioning and daily VLT for possible extubation -Propofol for sedation with daily sedation holidays -Continue Ceftriaxone/Doxycycline/Clindamycin at this time 3. Chronic Alcohol abuse with severe metabolic derrangements, present on admission, active -Likely due to malabsorbtion and poor nutrition -Patient is hypomagnesemic, hypokalemic, hypophosphatemic, and hypocalcemic since admission -Continue to replace electrolytes -Continue niacin, folic acid, and thiamine through his OG tube -Storm Window Installer consult for proper nutrition -Monitor electrolytes 4. Sepsis likely due to Aspiration pneumonia, present on admission, improving -Patient is hemodynamically stable with stable BP and normal temperature -WBC 17.2->8.9, Lactate 10->1.3, Procalc negative at .23 -CT chest post intubation concerning for infiltrate/aspiration vs atelectasis in LLL, however repeat CXR showed clear lungs -Blood cx prelim negative. MRSA screen negative. PCR viral panel negative. Pending sputum cultures -Patient is improving however is continuing to have copious secretions -Given patient's prolonged Qtc, antibiotic regimen switched to Ceftriaxone/Doxycycline/Clindamycin. Will continue and wait for sputum cultures -Patient is hemodynamically stable. Will therefore decrease IVF to 80cc/hr and consult sexologist for tube feedings 5. Acute kidney injury, present on admission, resolved -Likely due to sepsis/ dehydration -BUN 15, Cr .9 this am -Decrease IVF to 80cc/hr and start feedings 6. Acute Hyperglycemia, present on admission, resolved -Likely due to sepsis as patient has no history of DM -Monitor BG checks 7. Essential hypertension, chronic -BP currently stable -Continue to hold BP medications as patient is being treated for sepsis and is also on propofol drip for sedation FASTHUG Heparin 5000 units b.i.d Code status: Full Code Dispo: Continue to manage patient in ICU with daily sedation holidays and VLT trials until he is out of DTs. Continue to treat Aspiration pneumonia and continue to replete electrolyte derrangements. Storm Window Installer for proper feedings. Quality VTE Deep Vein Thrombosis/Pulmonary Embolism Present on Admission: No
[2019-03-03] MEDS: MAGNESIUM SULFATE 2 GM/50 ML PIGGYBACK IV (07:51)
[2019-03-03] MEDS: CALCIUM GLUCONATE 9.3 MEQ in SODIUM CHLORIDE 0.9% 50 ML 140 ML IV (07:52)
[2019-03-03] MEDS: POTASSIUM CHLORIDE 20 MEQ/15 ML UDC 40 MEQ PO (07:53)
[2019-03-03] MEDS: FOLIC ACID 1 MG TABLET PO (07:55)
[2019-03-03] MEDS: THIAMINE 100 MG TABLET PO (07:55)
[2019-03-03] MEDS: PANTOPRAZOLE 40 MG VIAL IV (07:55)
[2019-03-03] MEDS: MULTIVITAMIN 1 TABLET 1 TAB PO (07:55)
[2019-03-03] MEDS: HEPARIN 5,000 UNIT/ML VIAL 5000 UNIT SUBCUT ×2 (07:55→22:39)
[2019-03-03] MEDS: cloNIDine 0.1 MG TABLET PO (07:56)
[2019-03-03 08:20] LABS: HCO3 ABG 17 mmol/L (22-26); Oxygen Saturation ABG 99 % (95-100); PCO2 ABG 25.4 mmHg (35-45); PO2 ABG 135 mmHg (80-100); TCO2 ABG 18 mmol/L (21-31); pH ABG 7.43 (7.35-7.45)
[2019-03-03] MEDS: KCL 40 MEQ IN NS 1,000 ML 80 MEQ IV (11:44)
--- NOTE | 2019-03-03 11:45 | DIET.PN ---
Assessment: 68y M c EtOH withrawl, DT, ventilated, resolving TYRESE referred to RD for malnutrition and EN orders Labs: GFR >60, K+ 2.8, Phos 2.3, Mg 1.5 (L), BG 74-119 Pt hemodynamically stable-cleared to feed- MAP 84, Lactate 1.3 stable, no pressors, no abd distension. Nutrition Diagnosis: Severe PCM r/t EtOH dependence c reported increased recent intake, TYRESE, vent dependent aeb BMI 20.5 (<21 for age), substance withdrawl (etoh), altered blood chemistry (low K+, Mg, Phos), NFPE showing moderate fat loss in orbital, triceps, moderate fat loss in temporal, clavicular. Intervention: Start NG EN Jevity 1.2 @ 25mL/h continuous per protocol, increasing to goal rate incrementally as tolerated. Watch Mg, K+, Phos, and third spacing as high risk for refeeding. Noted Mg, K+, and Phos are being supplemented. Goal: Jevity 1.2 @ 65mL/h continuous NG provides 1872 kcal (100%), 87g PRO (100%), and 1260mL free water (66%) also nutrients of concern: 936mcg Folic Acid, 3.6g Thiamin, 2.9g K+, 1872mg Phos, 625mg Magnesium, 36mg Zinc. Add 640mL water/d to fulfill fluid reqs as flushes unless satisfied via IV fluids. Continue MVI; K+, Mg+, Phos, Thiamin, FA supps for repletion. Consider zinc repletion for hypercapnia. Monitoring/Evaluation: RD to follow daily until pt tolerating at goal rate of 65mL/h and during transition to PO.
--- NOTE | 2019-03-03 13:14 | PC.NURSE ---
Addendum entered by Donnie Gabriel R.N. 03/03/19 15:09: 1400- Performed hygiene care/linen change. Pt became increasingly agitated and pulling arms up toward face, resisting restraints- requiring titration of propofol. Notified Dr. Quintero on rounds and orders received for fentanyl IVPs for pain/discomfort as pt is frequently coughing/gagging r/t ETT. RT at bedside advanced ETT [address] Quintero instruction. Pt resting comfortably after IVP fentanyl given. Maintaining restraints for ETT/line protection. Original Note: Sedation titrated to off for sedation vacation and SBT at 0920. Pt noted to be drowsy but sustains eye opening during conversation, follows commands, and nods head yes/no to simple questions. Pt having difficulty using clipboard to write r/t tremors. Provided reorientation and educated to situation and plan of care. Pt nods head yes when asked if he understands. Pt was switched to pressure support twice today but was notably bradypneic and apneic causing back up ventilation settings to be triggered. Reported progress to Dr. Quintero at 1315. Plan to continue [facility] ventilation and start TFs today.
[2019-03-03] MEDS: fentaNYL 100 MCG/2 ML INJ 25 MCG IV (14:30)
--- NOTE | 2019-03-03 14:58 | RT ---
Pt was put on Cpap for 20 minutes with cont. couching the pt would do okay but once not reminded to breathe the pt. would stop breathing and the Vent would kick back into the back-up mode. Pt was unable to stay on the Cpap Trial at this time. RN was informed.
[2019-03-03 17:19] LABS: BUN Creatinine Ratio 13.3 (6-22); Blood Urea Nitrogen 12 mg/dL (9-20); Calcium 7.2 mg/dL (8.4-10.2); Carbon Dioxide 20 mmol/L (22-32); Chloride 114 mmol/L (98-107); Estimated Glomerular Filt Rate > 60.0 mL/min (>60); Glucose 112 mg/dL (80-110); HEMOLYSIS < 15 (0-50); Magnesium 1.7 mg/dL (1.6-2.3); Potassium 3.8 mmol/L (3.4-5.1); Sodium 141 mmol/L (137-145)
[2019-03-03] MEDS: CALCIUM GLUCONATE 4.65 MEQ in SODIUM CHLORIDE 0.9% 50 ML 120 ML IV (20:39)
[2019-03-04] VITALS (27 sets, daily range): BP systolic 116–172; BP diastolic 73–104; PULSE 31–99; RESP 10–27; TEMP 37.1–37.7; O2SAT 96–100
[2019-03-04] MEDS: LORazepam 2 MG/ML INJ IV (00:11)
[2019-03-04] MEDS: CLINDAMYCIN 600 MG/50 ML PIGGYBACK 50 MG IV ×4 (01:28→19:40)
[2019-03-04] MEDS: PROPOFOL 1,000 MG/100 ML VIAL 40 MG IV (01:29)
[2019-03-04 05:02] LABS: Add Manual Diff / Slide Review NO; Basophils Absolute Auto 0 /uL (0-100); Basophils Percent Auto 0.2 % (0-2); Eosinophils Absolute Auto 100 /uL (0-450); Eosinophils Percent Auto 1.2 % (2-4); Hematocrit 27.2 % (41-53); Hemoglobin 9.3 g/dL (13.5-17.5); Lymphocytes Absolute Auto 900 /uL (1100-4500); Lymphocytes Percent Auto 10.8 % (25-40); Mean Corpuscular HGB Conc 34.2 % (30-36); Mean Corpuscular Hemoglobin 34.6 PG (26-34); Monocytes Absolute Auto 700 /uL (0-900); Monocytes Percent Auto 8.5 % (3-14); Neutrophils Absolute Auto 6400 /uL (1500-7000); Neutrophils Percent Auto 79.3 % (50-75); Platelet Count 205 X10^3/uL (150-400); Red Blood Cell Count 2.69 X10^6/uL (4.5-5.9); Red Cell Distribution Width 12.4 % (11.6-14.8)
[2019-03-04 05:07] LABS: Blood Urea Nitrogen 12 mg/dL (9-20); Calcium 7.4 mg/dL (8.4-10.2); Carbon Dioxide 20 mmol/L (22-32); Chloride 115 mmol/L (98-107); Estimated Glomerular Filt Rate > 60.0 mL/min (>60); Glucose 140 mg/dL (80-110); HEMOLYSIS < 15 (0-50); Magnesium 1.4 mg/dL (1.6-2.3); Phosphorous 1.6 mg/dL (2.3-3.7); Potassium 3.8 mmol/L (3.4-5.1); Sodium 142 mmol/L (137-145)
[2019-03-04] MEDS: KCL 40 MEQ IN NS 1,000 ML 80 MEQ IV (05:48)
[2019-03-04] MEDS: CEFTRIAXONE 1 GM/50 ML FROZ.PIGGY IV (05:49)
[2019-03-04] MEDS: INSULIN ASPART 100 UNIT/ML INSULN PEN SUBCUT ×3 (05:49→18:02)
[2019-03-04] MEDS: DOXYCYCLINE 100 MG in SODIUM CHLORIDE 0.9% 100 ML IV ×2 (06:34→17:58)
[2019-03-04 07:25] LABS: Triglycerides 190 mg/dL (35-150)
--- NOTE | 2019-03-04 07:35 | PC.NURSE ---
Patient remains on ventilator, FIO2 .25, RR set at 12, patient overrides up to 18 when not sedated. Propofol gtt titrated 35-50mcg/min for sedation, started to decrease rate in am in preparation for sedation vacation. He does nod and shake head appropriately and follows simple directions. 2mg IV Ativan given at 0100 for CIWA 9. CIWA at 0500 2. Tolerating tube feedings, Jevity 1.2 increased from 45ml/hr to 65ml/hr by am, residuals 10 and 5. Patient had large loose brown stool.
--- NOTE | 2019-03-04 07:49 | PC.NURSE ---
Addendum entered by Donnie Gabriel R.N. 03/04/19 14:37: Extubated to RA at [address] Quintero. Pt did well on breathing trial maintaining RR 8-10 and pulling more than adequate volumes. RSBI reported to Dr. uQintero by RT Giles. Pt is AAO and speaking in full sentences, asking appropriate questions. Voice is hoarse. Dr. Quintero at bedside to assess. Soft wrist restraints d/c'd. OGT dc'd with ETT. Plan to mobilize with PT and start diet. Original Note: Rec'd pt in bed resting eyes closed sedated to rass -2 on propofol. Titrated propofol to off for pressure support trial which began at 0745. Pt is drowsy but following commands and nodding head yes/no to simple questions. VSS and SPO2 100% on current settings fio2 25% 08/14. Maintaining soft wrist restraints for ETT protection.
[2019-03-04] MEDS: MAGNESIUM SULFATE 2 GM/50 ML PIGGYBACK IV (07:55)
--- NOTE | 2019-03-04 08:34 | PM.PN.1 ---
Subjective Date Patient Seen: 03/04/19 Time Patient Seen: 08:34 Interval history: Follow-up on acute hypoxic respiratory failure secondary to alcohol withdrawal and aspiration pneumonia, with electrolyte disturbances. Patient seen at bedside. He failed VLT yesterday and today, as patient became apneic on the weaning trial and had to be constantly reminded to breathe. Patient would also get agitated and diaphoretic when stimulated during the breathing trial. No acute overnight events, however patient continues to have frequent secretions from ET tube. Vital signs continued to be stable. Patient was started on tube feeding diet yesterday. Continues to have electrolyte disturbances including hypomagnesemia and hypophosphatemia, all which are being repleted. Exam Vital Signs (past 8 hours): - 03/04/19 01:06 03/04/19 02:09 03/04/19 03:28 Temperature Pulse Rate 68 62 71 Respiratory Rate 17 12 13 Blood Pressure 149/93 H 116/73 133/83 Pulse Oximetry 100 98 100 03/04/19 04:09 03/04/19 05:06 03/04/19 06:20 Temperature 98.8 F Pulse Rate 99 H 70 64 Respiratory Rate 27 H 17 17 Blood Pressure 142/78 H 129/78 125/89 Pulse Oximetry 96 100 100 03/04/19 07:00 03/04/19 07:50 Temperature 98.9 F Pulse Rate 64 Respiratory Rate 13 Blood Pressure 127/85 Pulse Oximetry 98 100 Fraction of Inspired Oxygen 25 Oxygen Delivery Method Mechanical Ventilation Oxygen Flow Rate 25 Narrative Exam Narrative: General: RASS -1, following commands, intubated HEENT: PERRLA bilaterally, EOMI bilaterally, ET tube and OG tube in place Neck: Supple, no LAD or JVD CV: Regular rate rhythm, no murmurs or gallops appreciated Respiratory: Coarse breath sounds appreciated at the bases bilaterally with copious clear secretions GI: Positive bowel sounds in all 4 quadrants, no organomegaly, nontender, nondistended Musculoskeletal: Moves all extremities Skin: No bruising or lesions Extremities: No edema appreciated. 2+ pulses Neuro: RASS -1, following commands Psych: Patient becomes agitated and diaphoretic when propofol is weaned off and is stimulated. However falls asleep and becomes apneic when left alone. Objective Labs Result Diagrams: 03/04/19 04:44 03/04/19 04:44 Labs: Laboratory Results - last 24 hr 03/03/19 03/04/19 03/04/19 16:30 04:44 04:44 WBC 8.0 RBC 2.69 L Hgb 9.3 L Hct 27.2 L MCV 101.0 H MCH 34.6 H MCHC 34.2 RDW 12.4 Plt Count 205 Neut % (Auto) 79.3 H Lymph % (Auto) 10.8 L [place] % (Auto) 8.5 Eos % (Auto) 1.2 L Baso % (Auto) 0.2 Neut # (Auto) 6400 Lymph # (Auto) 900 L [place] # (Auto) 700 Eos # (Auto) 100 Baso # (Auto) 0 Sodium 141 142 Potassium 3.8 3.8 Chloride 114 H 115 H Carbon Dioxide 20 L 20 L BUN 12 12 Creatinine 0.90 0.80 Estimated GFR > 60.0 > 60.0 BUN/Creatinine Ratio 13.3 15.0 Glucose 112 H 140 H Calcium 7.2 L 7.4 L Phosphorus 1.6 L Magnesium 1.7 1.4 L Triglycerides 03/04/19 04:44 WBC RBC Hgb Hct MCV MCH MCHC RDW Plt Count Neut % (Auto) Lymph % (Auto) [place] % (Auto) Eos % (Auto) Baso % (Auto) Neut # (Auto) Lymph # (Auto) [place] # (Auto) Eos # (Auto) Baso # (Auto) Sodium Potassium Chloride Carbon Dioxide BUN Creatinine Estimated GFR BUN/Creatinine Ratio Glucose Calcium Phosphorus Magnesium Triglycerides 190 H Assessment & Plan Assessment & Plan narrative: 68yo M with PMH known hypertension and alcohol abuse was transferred from [facility] [place] [facility] for acute alcohol withdrawal requiring sedation and intubation. He was admitted to the ICU for further management. 1. Acute alcohol withdrawal with delirium tremens, present on admission, on going -requiring intubation at the [facility] ED -Patient keeps failing VLT as he becomes apnic and then agitated when stimulated. Will attempt another VLT in the afternoon -Triglicerides are 190. WIll stop propofol to avoid Propofol infusion syndrome. Will give Ativan pushes via OG tube until next VLT trial. If fails, will start patient on versed drip -Consider transferring patient to tertiary care facility if patient continues to be apnic -Continue CIWA protocol and soft restraints 2. Acute hypoxic Respiratory failure, due to Acute alcohol withdrawal vs pneumonia, present on admission, Improving -Currently on mechanical ventilation with vent settings 25/5/12/500 -ABG this am pending -Continue pulmonary toiletting with suctioning and daily VLT for possible extubation -Continue Ceftriaxone/Doxycycline/Clindamycin at this time -Will give ativan pushes for sedation until next VLT. If fails, will resume versed drip 3. Chronic Alcohol abuse with severe metabolic derrangements, present on admission, active, improving -Likely due to malabsorbtion and poor nutrition -Patient is hypomagnesemic, hypokalemic, hypophosphatemic, and hypocalcemic since admission but improving numbers -Continue to replace electrolytes -Continue niacin, folic acid, and thiamine through his OG tube -[employer] consulted and patient is started on Jevity 1.2 -Monitor electrolytes 4. Sepsis likely due to Aspiration pneumonia, present on admission, improving -Patient is hemodynamically stable with stable BP and normal temperature -WBC 17.2->8.9->8.0, Lactate 10->1.3, Procalc negative at .23 -CT chest post intubation concerning for infiltrate/aspiration vs atelectasis in LLL, however repeat CXR showed clear lungs -Blood cx final read negative. MRSA screen negative. PCR viral panel negative. Pending sputum cultures -Patient is improving however is continuing to have copious secretions -Continue Ceftriaxone/Doxycycline/Clindamycin -IVF turned off as patient is now on tube feedings and is hemodynamically stable 5. Acute kidney injury, present on admission, resolved -Likely due to sepsis/ dehydration -BUN 12, Cr .8 this am -Monitor renal function 6. Acute Hyperglycemia, present on admission, resolved -Likely due to sepsis as patient has no history of DM -Monitor BG checks 7. Essential hypertension, chronic -BP currently stable -Continue to hold BP medications as patient is being treated for sepsis and is on sedation medication FASTHUG Heparin 5000 units b.i.d Code status: Full Code Quality VTE Deep Vein Thrombosis/Pulmonary Embolism Present on Admission: No
--- NOTE | 2019-03-04 08:37 | DI.RAD.S_ITS ---
PROCEDURE: XR CHEST 1V INDICATIONS: intubated. ET tube reajusted. TECHNIQUE: One view of the chest was acquired. COMPARISON: [facility], CR, XR CHEST 1V, 03/03/2019, 7:35. FINDINGS: Surgical changes and devices: Endotracheal tube is present at approximately the level of the sabino. Nasogastric tube is noted. Lungs and pleura: Consolidative appearance in the retrocardiac region slightly more prominent when compared to prior exam. Increased pulmonary vascularity is present. Mediastinum: Mediastinal contours appear normal. Heart size is normal. Bones and chest wall: No suspicious bony lesions. Overlying soft tissues appear unremarkable. IMPRESSION: Support lines as above. Interval prominence of retrocardiac opacity most suggestive of pneumonia. Mild increased vascularity is present suggestive of edema. Dictated by: Xenia Canseco M.D. on 03/04/2019 at 9:01 Approved by: Xenia Canseco M.D. on 03/04/2019 at 9:18
[2019-03-04 10:22] LABS: pH ABG 7.42 (7.35-7.45)
[2019-03-04 10:23] LABS: Fractionated Inspired Oxygen 25; HCO3 ABG 18 mmol/L (22-26); Oxygen Saturation ABG 98 % (95-100); PCO2 ABG 27.2 mmHg (35-45); PO2 ABG 104 mmHg (80-100); TCO2 ABG 18 mmol/L (21-31)
[2019-03-04] MEDS: POTASSIUM PHOSPHATE 10 MMOL in SODIUM CHLORIDE 0.9% 1,000 ML 100 MMOL IV (10:29)
[2019-03-04] MEDS: HEPARIN 5,000 UNIT/ML VIAL 5000 UNIT SUBCUT ×2 (10:30→21:29)
[2019-03-04] MEDS: MULTIVITAMIN 1 TABLET 1 TAB PO (10:30)
[2019-03-04] MEDS: FOLIC ACID 1 MG TABLET PO (10:30)
[2019-03-04] MEDS: THIAMINE 100 MG TABLET PO (10:30)
[2019-03-04] MEDS: PANTOPRAZOLE 40 MG VIAL IV (10:31)
--- NOTE | 2019-03-04 14:41 | CM.DPC ---
DCP/continued: Reviewed chart. Patient remains on ventilator. Per MD and respiratory therapy in AM rounds patient unable to safely intubate. UNIT DIRECTOR received phone call from Halley from [place] [employer] she reports that spouse/Abbie has called her requesting assistance with d/c planning for patient. Notified Halley Zuleta that UNIT DIRECTOR unable to provide her with any information pertaining to patient without release of information signed. Halley understood and faxed release. UNIT DIRECTOR called Abbie patient's spouse of 35yrs. Abbie confirms that she called [facility] [employer] for assistance because she does not know what else to do? Spouse aware that patient currently intubated and that CM team will work with her and community agencies when appropriate to coordinate d/c planning. Abbie appears to have understood but rambled throughout conversation. Abbie reports that she and patient both drink daily. Abbie continues to ramble throughout conversation about what to do next? She reports that her right shoulder is dislocated so she is unable to drive. However, she does have friends that can help. Abbie expects them to come help her clean the house and care for her tomorrow. Encouraged Abbie to consider obtaining transportation (possibly this weekend) to [facility] to discuss planning and to see her spouse. Abbie reports that she will make attempt to ask friend's for transport. In the meantime, paperwork/PHANI for [employer] [employer] will be on hold. At this time it is too soon to determine patient's d/c needs. Abbie in agreement. UNIT DIRECTOR to follow with Abbie closely. At this point no idea what patient will need. P: Pending. ALMA Pollack
[2019-03-04] MEDS: LOSARTAN 50 MG TABLET 100 MG PO (15:17)
[2019-03-04] MEDS: hydroCHLOROthiazide 12.5 MG CAPSULE PO (15:18)
--- NOTE | 2019-03-04 17:18 | PT.IPTN ---
Current Diagnoses Hypokalemia (03/02/19) Alcohol dependence with withdrawal delirium (03/02/19) Acute kidney failure, unspecified (03/02/19) Physical Therapy Treatment Note M2 PT-IP Current Condition Start: 03/04/19 15:48 Freq: NEEDED Status: Active Protocol: Document 03/04/19 15:49 [facility] (Rec: 03/04/19 15:52 [facility] [id number]) Physical Therapy Current Condition Current Condition Treatment Diagnosis weakness; alcohol withdrawl M3 PT-IP Subjective Start: 03/04/19 15:48 Freq: NEEDED Status: Active Protocol: Document 03/04/19 15:49 [facility] (Rec: 03/04/19 17:17 [facility] [id number]) Subjective Physical Therapy Visit Type Type Patient Unavailable Notes pt refused 2x d/t no glasses. Pt told RN he is legally blind and cannot see much without them. has still not brought them
[2019-03-05] VITALS (12 sets, daily range): BP systolic 125–142; BP diastolic 78–98; PULSE 80–102; RESP 11–20; TEMP 36.8–37.7; O2SAT 96–100
[2019-03-05] MEDS: CLINDAMYCIN 600 MG/50 ML PIGGYBACK 50 MG IV (02:15)
[2019-03-05] MEDS: SODIUM CHLORIDE 0.9% FLUSH 10 ML IV ×3 (05:29→20:03)
[2019-03-05] MEDS: CEFTRIAXONE 1 GM/50 ML FROZ.PIGGY IV (05:29)
[2019-03-05 05:39] LABS: Add Manual Diff / Slide Review NO; Basophils Absolute Auto 100 /uL (0-100); Basophils Percent Auto 0.6 % (0-2); Eosinophils Absolute Auto 200 /uL (0-450); Eosinophils Percent Auto 2.7 % (2-4); Hematocrit 27.7 % (41-53); Hemoglobin 9.8 g/dL (13.5-17.5); Lymphocytes Absolute Auto 1100 /uL (1100-4500); Lymphocytes Percent Auto 12.6 % (25-40); Mean Corpuscular HGB Conc 35.3 % (30-36); Mean Corpuscular Hemoglobin 34.9 PG (26-34); Mean Corpuscular Volume 98.9 fL (80-100); Monocytes Absolute Auto 800 /uL (0-900); Monocytes Percent Auto 9.7 % (3-14); Neutrophils Absolute Auto 6400 /uL (1500-7000); Neutrophils Percent Auto 74.4 % (50-75); Platelet Count 230 X10^3/uL (150-400); Red Cell Distribution Width 12.3 % (11.6-14.8); White Blood Cell Count 8.7 X10^3/uL (4.5-11.0)
[2019-03-05 05:44] LABS: Alanine Aminotransferase 22 IU/L (21-72); Alkaline Phosphatase 47 U/L (38-126); Aspartate Aminotransferase 23 IU/L (17-59); BUN Creatinine Ratio 11.4 (6-22); Bilirubin Total 0.6 mg/dL (0.2-1.3); Blood Urea Nitrogen 8 mg/dL (9-20); Calcium 7.7 mg/dL (8.4-10.2); Carbon Dioxide 22 mmol/L (22-32); Chloride 110 mmol/L (98-107); Estimated Glomerular Filt Rate > 60.0 mL/min (>60); Globulin 3.1 g/dL (1.7-4.1); Glucose 96 mg/dL (80-110); HEMOLYSIS < 15 (0-50); Phosphorous 1.8 mg/dL (2.3-3.7); Potassium 4.1 mmol/L (3.4-5.1); Sodium 141 mmol/L (137-145); Total Protein 6.1 g/dL (6.3-8.2)
[2019-03-05] MEDS: DOXYCYCLINE 100 MG in SODIUM CHLORIDE 0.9% 100 ML IV (06:22)
--- NOTE | 2019-03-05 06:42 | PC.NURSE ---
Patient is oriented x3, remains forgetful and weak, 2 person assist to BSC for moderate loose stool. CIWA = 2. SR at rest, ST up to 120 briefly during activity. Other VSS. RA SpO2 >95% RR 12-18, has dry hacking cough, denies dyspnea. Taking PO well. Reported Mg+ 1.0 to provider in am, order entered, waiting for verification.
[2019-03-05] MEDS: MAGNESIUM SULFATE 2 GM/50 ML PIGGYBACK IV ×2 (08:01→13:50)
--- NOTE | 2019-03-05 08:10 | DI.RAD.S_ITS ---
PROCEDURE: XR HAND LT MIN 3V INDICATIONS: MCP joint region swelling TECHNIQUE: 3 views of the hand(s) acquired. COMPARISON: None. FINDINGS: Bones: No fractures or dislocations. Carpal bones are normally aligned. No suspicious bony lesions. Soft tissues: No suspicious soft tissue calcifications. IMPRESSION: Intact left hand. Dictated by: Kacie Weldon M.D. on 03/05/2019 at 9:09 Approved by: Kacie Weldon M.D. on 03/05/2019 at 9:11
[2019-03-05] MEDS: hydroCHLOROthiazide 12.5 MG CAPSULE PO (08:26)
[2019-03-05] MEDS: THIAMINE 100 MG TABLET PO (08:26)
[2019-03-05] MEDS: MULTIVITAMIN 1 TABLET 1 TAB PO (08:26)
[2019-03-05] MEDS: PANTOPRAZOLE 40 MG VIAL IV (08:26)
[2019-03-05] MEDS: dilTIAZem CD 240 MG CAP PO (08:27)
[2019-03-05] MEDS: FOLIC ACID 1 MG TABLET PO (08:27)
[2019-03-05] MEDS: HEPARIN 5,000 UNIT/ML VIAL 5000 UNIT SUBCUT ×2 (08:27→20:04)
[2019-03-05] MEDS: PHOSPHA 250 NEUTRAL TABLET 250 MG PO ×3 (08:31→20:03)
[2019-03-05] MEDS: LOSARTAN 50 MG TABLET 100 MG PO (08:39)
--- NOTE | 2019-03-05 11:20 | PT.IIE ---
Current Diagnoses Hypokalemia (03/02/19) Alcohol dependence with withdrawal delirium (03/02/19) Acute kidney failure, unspecified (03/02/19) Surgical History (Last Updated 03/02/19 @ 06:25 by HENRY Montgomery) History of appendectomy (Inactive) Medical History (Last Updated 03/02/19 @ 07:21 by HENRY Montgomrey) TYRESE (acute kidney injury) (Acute) Hypokalemia (Acute) Alcohol withdrawal seizure with delirium (Acute) Essential hypertension (Acute) Physical Therapy Inpatient Evaluation/Re-Eval M1 PT/OT-IP Prior Functional Status Start: 03/04/19 15:48 Freq: NEEDED Status: Active Protocol: Document 03/05/19 11:25 [facility] (Rec: 03/05/19 12:11 [facility] [id number]) Medical Review Prior Functional Status Medical History Reviewed Yes Diet/Fluid Consistency Regular Communication WNL Mobility and Gait Pt amb without AD but is limited d/t his back pain. He was just starting OP PT for that which has been successful in the past. Activities of Daily Living and IADL's Indep with ADLs and shares housework with his . Pt manges his own medications and the finances. Prior Functional Level (Other details) Pt states his fell and dislocated her shoulder ~1 week ago and is currently wearing a sling and cannot drive. Social History Household Members spouse Living Arrangements Mobile home Number of Floors (Floors) One Floor Number of Stairs To Enter/Railing? 3 MELISSA w/rail Home Environment Standard Height Toilet Walk in Shower Home Equipment Shower Seat without Backrest Grab Bars In Shower Employment Status Retired Additional Social History Comment pt lives in [email or web address] home M2 PT-IP Current Condition Start: 03/04/19 15:48 Freq: NEEDED Status: Active Protocol: Document 03/05/19 11:20 AB (Rec: 03/05/19 12:24 AB [id number]) Physical Therapy Current Condition Current Condition Evaluation Date 03/05/19 Treatment Diagnosis acute kidney injury; alcohol withdrawal; difficulty in walking Onset Date 03/02/19 M3 PT-IP Subjective Start: 03/04/19 15:48 Freq: NEEDED Status: Active Protocol: Document 03/05/19 11:20 AB (Rec: 03/05/19 12:24 AB [id number]) Subjective Physical Therapy Visit Type Type Initial Evaluation Visit Start Time 11:20 Visit Stop Time 11:55 Total Visit Minutes 35 Number of INFECTIOUS WASTE TECHNICIAN Visits 0 Physical Therapy Visit Comments Patient Comments pt agreeable to do PT Therapy Pain Assessment Pain Present Pain Present Denied Pain M4 PT-IP Mobility and Gait Start: 03/04/19 15:48 Freq: NEEDED Status: Active Protocol: Document 03/05/19 11:20 AB (Rec: 03/05/19 12:24 AB [id number]) PT-Bed Mobility Assessment Supine to Sit Supine to Sit Standby Assistance Sit to Supine Sit to Supine Standby Assistance Scooting Scooting to Edge of Bed Standby Assistance Scooting Up and Down in Bed Standby Assistance PT-Transfer Assessment Sit to and From Stand Sit to and from Stand Contact Guard Assistance Equipment Transfer Assistive Device Gait Belt Front Wheeled Walker Transfers Transfer Destination Bed Chair Transfer Technique pt ambulated using FWW Transfer Ability Level of Assist Contact Guard Assistance Gait Assessment Gait Gait Assistance Required: Contact Guard Assist Minimum Assistance Distance (Feet) 15 Able to Maintain Weight Bearing Status Yes During Gait Assistive Devices Assistive Device Gait Belt Front Wheeled Walker Orthotic/Prosthetic Devices or Brace: No Gait Deviations General Gait Pattern Antalgic Decreased Stride Length Decreased Feet Clearance Flexed Trunk Factors Limiting Gait Function Factors Limiting Gait Function Decreased Activity Tolerance Decreased Strength Poor Balance Poor Safety Awareness Comments Gait Comments pt ambulated from chair to bed ~ 15 ft and back to chair again ~ 15 ft using FWW CGA to min A and cues. presents with unsteady gait with decrease FANTASMA and step length and width with increase trunk flexion. PT-Balance Assessment Sitting Balance and Reactions Static Sitting Balance Ability Good Dynamic Sitting Balance Ability Good Standing Balance and Reactions Static Standing Balance Ability Fair Dynamic Standing Balance Ability Fair Device Used FWW M5 PT-IP Objective Assessments Start: 03/04/19 15:48 Freq: NEEDED Status: Active Protocol: Document 03/05/19 11:20 AB (Rec: 03/05/19 12:24 AB [id number]) Orientation Orientation/Cognition Level of Alertness Alert Orientation Name Place Situation Language Function Ability No Deficits Noted Gross Range of Motion Upper Extremity ROM Impairments nurse stated that MD requested assessment of L 3rd/4th fingers as pt is unable to straighten the. assessed L hand. (+) MCP joint edema and erythema. 3rd/4th/5th MCP in flexion but PIP and DIP in extension. pt unable to actively move MCP to extension . PROM WNL but pt c/o pain. Pt able to actively do MCP flexion. Pt presents with trigger fingers and possible gout on MCP joints particularly 3rd/4th and 5th digits. Lower Extremity ROM Assessment Within Functional Limits Strength Upper Extremity Strength Assessment Left Impaired Lower Extremity Strength Assessment Bilaterally Impaired Hip 4-/5 Knee 4-/5 Coordination Assessment Gross Coordination Gross Coordination WNL Muscle Tone Muscle Tone WNL Yes M6 PT-IP Treatment Start: 03/04/19 15:48 Freq: NEEDED Status: Active Protocol: Document 03/05/19 11:20 AB (Rec: 03/05/19 12:24 AB [id number]) Physical Therapy Treatment Education Education Provided Safety M7 PT-IP Assessment and Plan Start: 03/04/19 15:48 Freq: NEEDED Status: Active Protocol: Document 03/05/19 11:20 AB (Rec: 03/05/19 12:24 AB [id number]) PT Summary Assessment and Plan Potential Rehabilitation Potential Good Status of Condition at Evaluation Stable Summary Impairments ROM Strength Balance Bed Mobility Transfers Gait Activity Tolerance Assessment Summary pt requiring SBA to CGA with mobility but presents with decrease activity tolerance affecting mobility and independence. Goals Bed Mobility Goal Independent Transfer Goal Independent Front Wheeled Walker Gait Goal Independent Front Wheel Walker Gait Distance 200 Other Goals ambulation without AD ~ 150 ft up/down 3 steps using B rails SBA Days to Meet Goals 10 Frequency of Treatment Frequency Of Treatment Once a Day Treatment Plan Physical Therapy Treatment Plan Bed Mobility Training Transfer Training Gait Training Therapeutic Exercise Balance Retraining Discharge Planning Hot or Cold Pack Neuromuscular Re-ed Coordination Retraining Manual Therapy Other Recommendations and Next Treatment ambulation, stair climbing Focus training Recommendations To Nursing Amount of Assist Needed 1 Person Assist Discharge Recommendations PT Discharge Recommendations Home with Assistance Home Health Equipment Needed for Home Before FWW Discharge
--- NOTE | 2019-03-05 11:25 | OT.IP.EVAL ---
Current Diagnoses Hypokalemia (03/02/19) Alcohol dependence with withdrawal delirium (03/02/19) Acute kidney failure, unspecified (03/02/19) Past Medical History (Last Updated 03/02/19 @ 07:21 by HENRY Montgomery) TYRESE (acute kidney injury) (Acute) Hypokalemia (Acute) Alcohol withdrawal seizure with delirium (Acute) Essential hypertension (Acute) Surgical History (Last Updated 03/02/19 @ 06:25 by HENRY Montgomery) History of appendectomy (Inactive) Occupational Therapy Inpatient Evaluation/Re-Eval M1 PT/OT-IP Prior Functional Status Start: 03/04/19 15:48 Freq: NEEDED Status: Active Protocol: Document 03/05/19 11:25 FILIPPO (Rec: 03/05/19 12:11 FILIP[facility] [id number]) Medical Review Prior Functional Status Medical History Reviewed Yes Diet/Fluid Consistency Regular Communication WNL Mobility and Gait Pt amb without AD but is limited d/t his back pain. He was just starting OP PT for that which has been successful in the past. Activities of Daily Living and IADL's Indep with ADLs and shares housework with his . Pt manges his own medications and the finances. Prior Functional Level (Other details) Pt states his fell and dislocated her shoulder ~1 week ago and is currently wearing a sling and cannot drive. Social History Household Members spouse Living Arrangements Mobile home Number of Floors (Floors) One Floor Number of Stairs To Enter/Railing? 3 MELISSA w/ B rails Home Environment Standard Height Toilet Walk in Shower Home Equipment Shower Seat without Backrest Grab Bars In Shower Employment Status Retired Additional Social History Comment pt lives in [employer] home M2 OT-IP Current Condition Start: 03/05/19 11:38 Freq: Status: Active Protocol: Document 03/05/19 11:25 FILIPPO (Rec: 03/05/19 12:11 FILIPPO [id number]) Occupational Therapy Current Condition Current Condition Evaluation Date 03/05/19 Treatment Diagnosis decr'd self care, mobility, cognition; DX:ETOH WD s/p intubation,PNA,sepsis Diagnosis Onset Date 03/02/19 Post Operative Precautions Other Precautions fall risk M3 OT- IP Subjective and Pain Start: 03/05/19 11:38 Freq: Status: Active Protocol: Document 03/05/19 11:25 PJ (Rec: 03/05/19 12:11 [facility] [id number]) OT- Subjective Occupational Therapy Visit Type Type Initial Evaluation Visit Start Time 09:56 Visit Stop Time 10:25 Total Visit Minutes 89 Notes Pt extubated 03/04/19. Pt seen for evaluation, transfer to [facility],shower and dressing; performs slowly. Pt c/o of L hand pain and decreased AROM in middle and ring fingers. Xrays negative. Pt also c/o dizziness with sit to stand; orthostatics negative. Pt reports episodes of dizziness at home prior to admit. Occupational Therapy Visit Comments Patient Comments My L hand is really sore and I can't straighten my middle and ring fingers. Patient/Caregiver Goals to go home OT Pain Assessment Pain When Pain Assessed During Mobility Pain Present Pain Present Pain Reported Location Left Finger Scale Used middle, ring fingers with movement Description Sharp Pain Behaviors Facial Grimacing Guarding Management Techniques Distraction Modification of Treatment M4 OT- IP ADL's Start: 03/05/19 11:38 Freq: Status: Active Protocol: Document 03/05/19 11:25 [facility] (Rec: 03/05/19 12:11 [facility] [id number]) OT DPR-Ndck-Qsmlbit General Evaluation Self-Feeding Ability Independent OT ADL-Grooming General Evaluation Grooming Ability Independent Areas Needing Assistance Retrieving/Set-up of Grooming Items Combing/Brushing Hair Face Washing OT ADL-Oral Care Comments Oral Care Comments did not occur this session OT ADL-Dressing General Eval Upper Body Dressing Ability Minimal Assistance Lower Body Dressing Ability Moderate Assistance Areas Needing Assistance Socks Comments OT Dressing Comments min assist with gown change, difficulty reaching feet to don socks, fearful of falling OT ADL-Toileting General Evaluation Toileting Ability Standby Assistance Total Assistance Areas Needing Assistance Empty Catheter or Colostomy Perform Perineal Hygiene Devices Toileting Assistive Devices Commode Comments OT Toileting Comments total assist with mcelroy management, SBA for pericare after liquid stool on BSC OT ADL-Bathing General Evaluation Bathing Ability Standby Assistance Areas Needing Assistance Retrieving/Setting Up Items Devices Bathing Equipment Hand Held Shower Sprayer Shower Chair without Arms Grab Bars Comments OT Bathing Comments Pt reluctant to software engineering specialist shower, completed shower seated. M5 OT- IP IADL's Start: 03/05/19 11:38 Freq: Status: Active Protocol: Document 03/05/19 11:25 PJM (Rec: 03/05/19 12:11 PJ [id number]) OT-Instrumental Activities of Daily Living Deficits IADL Deficits Identified Deficits Home Safety Awareness Awareness of Need for Assistance at Home Good Awareness Medication Management Medication Management No Deficits Identified Money Management Money Management No Deficits Identified Meal Preparation Meal Preparation Caregiver Provides Assist Meal Preparation Comments Pt states can provide some assist pt currently ahs RUE in sling. Country Printer Country Printer Caregiver Provides Assist Country Printer Comments Pt states can provide some assist pt currently ahs RUE in sling. Driving Driving Comments Pt drives when feeling well. cannot drive at present due to RUE sling. M6 OT- IP Functional Cognition Start: 03/05/19 11:38 Freq: Status: Active Protocol: Document 03/05/19 11:25 PJM (Rec: 03/05/19 12:11 [facility] [id number]) Cognitive Factors Limiting Selfcare Function Cognitive Ability Level of Alertness Alert Patient Orientation Name Place Situation Attention Span Ability Capable of Focused Attention Capable of Sustained Attention Ability to Follow Commands Able to Follow One Step Commands Problem Solving Ability Needs Assist to Identify Solutions Cognitive Comments Cognitive Assessment Comments Pt initially needing verbal cues for month, date, year but recalls them after 5 min delay. OT- Vision and Hearing OT- Hearing Assessment OT- Hearing Assessment WFL OT- Vision Assessment Vision History Cataracts Visual Acuity WFL Glasses All The Time Visual Attentiveness WFL Occular Pursuits WFL Vision Assessment Comments Pt states he is legally blind without his bifocals and has L cataract that limits vision in that eye. Acuity WFL with glasses. M7 OT- IP Mobility and Balance Start: 03/05/19 11:38 Freq: Status: Active Protocol: Document 03/05/19 11:25 PJM (Rec: 03/05/19 12:11 PJ [id number]) OT-Transfer Assessment Sit to and From Stand Sit to and from Stand Contact Guard Assistance Transfers Transfer Ability Contact Guard Assistance Technique Transfer Destination Bedside Commode Chair Shower Stall Transfer Technique Stand Step Pivot Devices Transfer Assistive Devices Gait Belt Front Wheeled Walker Comments Mobility Comments Pt lacks confidence but improved throughout session; needed initial cues for hand placement then recalled proper technique for rest of session OT- Gait Assessment Gait Gait Assistance Required: Contact Guard Assist Distance (Feet) 10 Able to Maintain Weight Bearing Status Yes During Gait Assistive Devices Assistive Device Gait Belt Front Wheeled Walker Comments Gait Ability Comments 5+5 feet to enter shower OT- Balance Assessment Sitting Balance and Reactions Static Sitting Balance Ability Good Dynamic Sitting Balance Ability Fair Standing Balance and Reactions Static Standing Balance Ability Good Dynamic Standing Balance Ability Fair Comments Other Balance Tests/Deviations/Treatment with FWW : M8 OT- IP Objective Assessments Start: 03/05/19 11:38 Freq: Status: Active Protocol: Document 03/05/19 11:25 PJM (Rec: 03/05/19 12:11 PJ [id number]) OT Gross Range of Motion Upper Extremity Range of Motion Assessment Within Functional Limits ROM Impairments except pt cannot extend L index and middle finger MP's, IP flexion/extension WFL OT Strength Upper Extremity Strength Assessment Within Functional Limits Hand Curb Setter Strength Hand Dominance Right OT- Coordination Assessment Comments Coordination Comments L hand function mildly impaired by lack of active MP extension in MF and RF and pain. OT-Muscle Tone Assessment Muscle Tone WNL Yes OT Sensation Assessment Comments Summary Comments BUE WNL Edema Edema Present Edema Comments L hand index, middle, ring and small finger MP joints red/ swollen. M9 OT- IP Assessment and Plan Start: 03/05/19 11:38 Freq: Status: Active Protocol: Document 03/05/19 11:25 PJM (Rec: 03/05/19 12:11 [facility] [id number]) OT Summary Assessment and Plan Potential Rehabilitation Potential Good Analytic Complexity at Evaluation Low Summary OT Impairments Strength Balance Functional Cognition Functional Mobility Grooming Dressing Toileting Bathing Toilet Transfers Shower Transfers Assessment Summary Low complexity OT assessment completed on this 68 yr old male admitted with acute ETOH WD requiring intubation 03/02-03/04/19. Pt also has TYRESE, hypokalemia, sepsis with possible aspiration PNA. Pt is normally independent with all self care, IADLS, and driving. He is far below his baseline level of function with decreased orientation, but follows one step commands well and able to recall orientation facts after 5 min delay. He also has performance deficits in all functional mobility/transfers, standing grooming, dressing, bathing and toileting. Pt will benefit from OT services here to address the goals below. D/C plan still uncertain pending progress, but pt has made significant improvement in last 24 hrs and able to tolerate long therapy session today including seated shower. Pt may need SNF at d/c for further rehab services as his cannot provide much physical assist at home due to recent shoulder injury with sling. Pt is pleasant cooperative with good participation and effort and motivated to improve back to baseline. Goals Grooming Goal Independent Dressing Goal Independent Toileting Goal Independent Bathing Goal Standby Assistance Toilet Transfer Goal Independent Shower Transfer Goal Standby Assistance Patient/Caregiver Education Goal Demonstrate Energy Conservation and Pacing OT-Other Goals Grooming to be done standing at sink with good safety awareness and no LOB. Pt to be consistently oriented and scores to be WNL on cognitive screen. Days to Meet Goals 7 Frequency of Treatment Frequency Of Treatment Once a Day Treatment Plan OT Treatment Plan ADL Training Functional Cognition Training Functional Mobility Patient/Family Education Discharge Planning Discharge Recommendations OT Discharge Recommendations SNF Rehab Other Discharge Recommendations vs home with HH pending progress here Home Equipment Needs to be determined pending progress
[2019-03-05 12:35] LABS: Magnesium 1.4 mg/dL (1.6-2.3)
[2019-03-05] MEDS: NAPROXEN 250 MG TABLET 500 MG PO ×2 (13:49→17:12)
--- NOTE | 2019-03-05 14:48 | CM.DANOTE ---
DCP/continued: Reviewed chart. Per MD, in AM rounds patient extubated last night 03-04-19. Patient evaluated by PT/OT and SNF vs. home with HH vs. home with assist recommended. ACCOUNT SUPPORT ANALYST spoke with RN whom reports patient up in recliner eating regular diet today. ACCOUNT SUPPORT ANALYST spoke with spouse/Abbie about meeting with ACCOUNT SUPPORT ANALYST re: d/c plan. Abbie had reported that she would attempt to get ride to hospital today to meet with ACCOUNT SUPPORT ANALYST and patient. Spoke with MD/Dr. Quintero re: d/c date? Per Dr. Quintero, patient medically stable to discharge either home or to SNF. Notified spouse and she reports that she had no warning that patient would be discharging so soon and is unprepared to have patient come home. Met with patient explained ACCOUNT SUPPORT ANALYST role. Patient reports that he continues to feel weak. Patient agreeable to short SNF stay if bed can be found. First choice is [facility] second is [facility]. Patient prefers not to go any further if possible. ACCOUNT SUPPORT ANALYST discussed alcohol use and circumstances of admission with patient. Patient reports I'm done drinking. Patient denies need for any community resources. Encouraged patient to consider Alcoholic Anonymous. Patient reports that he has no craving. Asked [facility]/Angie to call [facility] and [facility]. ACCOUNT SUPPORT ANALYST spoke with Shirin at [facility] and Sarah at [facility] neither facility has bed for tomorrow 03-06-19. Both expect to have bed on Sunday03-07-19. Both facilities agreeable to review for potential d/c Sunday and will call if bed becomes available sooner. Notified Dr. Quintero that 2 facilities evaluating. Unable to reach her to let her know that neither will have bed till Sunday. Patient and spouse aware pending patient's progress overnight he may be discharged home tomorrow. Spouse in agreement but reports that she is unable to care for him. Therefore, he will need to be primarily I. In addition, to the above placed call to [facility], obtained consent from patient to speak with Halley Zuleta re: roasterman care options. Left message with Halley that she can call patient in room and left number. Also provided her with ACCOUNT SUPPORT ANALYST number. Asked ACCOUNTANT MANAGER/Angie to check on HH in area. Unfortunately, unable to find agency that services that area or that can accommodate. P: SNF reviewing for admit. Both [facility] and [facility]. Patient will need PASRR completed. If unable to obtain SNF bed will mostly likely d/c home. Will need FWW. ALMA Pollack
--- NOTE | 2019-03-05 15:31 | PC.NURSE ---
Pt transferred to acute care at 1515 in no acute distress via w/c with all belongings. Pt states he will call , Abbie, at 1600 to notify her of room change. Report given to acute care RN.
--- NOTE | 2019-03-05 15:40 | PM.PN.1 ---
Subjective Date Patient Seen: 03/05/19 Time Patient Seen: 15:40 Interval history: Follow-up on acute hypoxic respiratory failure due to alcohol withdrawals. Patient seen at bedside. He is doing well. Breathing normal on room air. Mentation is clear. Patient passed bedside swallow evaluation and is able to eat. Patient has not required any use of Ativan status post extubation for alcohol withdrawal symptoms. His blood pressure after extubation was elevated, however normalized with resumption of home blood pressure medication regimen. Patient was evaluated by Physical therapy and Occupational therapy today, who recommended home with home health or fpc facility. Patient was initially resistant to going to SNF, however did not want to go home either (and patient's refused to come get him). He later on agreed to go to SNF. Paperwork for [facility] have been sent out. Exam Vital Signs (past 8 hours): - 03/05/19 12:00 Temperature 98.4 F Pulse Rate 94 H Respiratory Rate 16 Blood Pressure 142/98 H Pulse Oximetry 98 Fraction of Inspired Oxygen 25 Oxygen Delivery Method Room Air Oxygen Flow Rate 25 Narrative Exam Narrative: General: No acute distress, pleasant male, AAO x3 HEENT: PERRLA bilaterally, EOMI bilaterally, moist mucous membranes. Poor dentition. Neck: Supple, no LAD or JVD. CV: Regular rate rhythm, no murmurs or gallops appreciated Respiratory: Coarse breath sounds appreciated bilaterally although improving GI: Positive bowel sounds in all 4 quadrants, no organomegaly, nontender, nondistended Musculoskeletal: Moves all extremities Skin: Mild erythema and swelling appreciated on left hand MCP joint region 3rd and 4th digit. Associated with weakness in those digits. Extremities: No edema appreciated. 2+ pulses. Neuro: No focal deficits. Mild weakness of left hand digits 3 and 4. Psych: Appropriate mood and behavior. Patient is able to make his own decisions. Objective Labs Result Diagrams: 03/05/19 05:00 03/05/19 05:00 Labs: Laboratory Results - last 24 hr 03/05/19 03/05/19 03/05/19 05:00 05:00 12:01 WBC 8.7 RBC 2.80 L Hgb 9.8 L Hct 27.7 L MCV 98.9 MCH 34.9 H MCHC 35.3 RDW 12.3 Plt Count 230 Neut % (Auto) 74.4 Lymph % (Auto) 12.6 L [place] % (Auto) 9.7 Eos % (Auto) 2.7 Baso % (Auto) 0.6 Neut # (Auto) 6400 Lymph # (Auto) 1100 [place] # (Auto) 800 Eos # (Auto) 200 Baso # (Auto) 100 Sodium 141 Potassium 4.1 Chloride 110 H Carbon Dioxide 22 BUN 8 L Creatinine 0.70 Estimated GFR > 60.0 BUN/Creatinine Ratio 11.4 Glucose 96 Calcium 7.7 L Phosphorus 1.8 L Magnesium 1.0 L 1.4 L Total Bilirubin 0.6 AST 23 ALT 22 Alkaline Phosphatase 47 Total Protein 6.1 L Albumin 3.0 L Globulin 3.1 Albumin/Globulin Ratio 1.0 Assessment & Plan Assessment & Plan narrative: 68yo M with PMH known hypertension and alcohol abuse was transferred from [facility] Emergency Department for acute alcohol withdrawal requiring sedation and intubation. He was admitted to the ICU for further management. Status post successful extubation 03/04. 1. Acute alcohol withdrawal with delirium tremens, present on admission, resolved -requiring intubation at the [facility] ED, now status post extubation and doing well -patient has not required any use of Ativan in > 24 hours -will stop CIWA protocol and frequent neuro checks -continue multivitamin, thiamine, folic acid -patient refused assistance with alcohol cessation-unclear patient is planning to resume drinking alcohol 2. Acute hypoxic Respiratory failure, present on admission, resolved -likely due to Acute alcohol withdrawal vs pneumonia -currently saturating 98% on room air -monitor saturations 3. Chronic Alcohol abuse with severe metabolic derrangements, present on admission, active, improving -Likely due to malabsorbtion and poor nutrition -Patient is hypomagnesemic, hypokalemic, hypophosphatemic, and hypocalcemic since admission but improving numbers -Continue to replace electrolytes... Started on magnesium chloride 128 mg p.o. b.i.d. and K-Phos neutral 250 mg p.o. t.i.d. -Monitor electrolytes 4. Sepsis likely due to Aspiration pneumonia, present on admission, resolved -Patient is hemodynamally stable with stable BP and normal temperature -WBC 17.2->8.9->8.0->8.7, Lactate 10->1.3, Procalc negative at .23 -CT chest post intubation concerning for infiltrate/aspiration vs atelectasis in LLL -most recent chest x-ray 03/04 revealed Consolidative appearance in the retrocardiac region slightly more prominent when compared to prior exam. Increased pulmonary vascularity is present -Blood cx final read negative. MRSA screen negative. PCR viral panel negative. Sputum cultures showed mixed resident marlo -switched patient's antibiotics to Augmentin p.o. b.i.d. 3-6 more days 5. Acute kidney injury, present on admission, resolved 6. Acute Hyperglycemia, present on admission, resolved 7. Essential hypertension, chronic -BP currently stable -continue patient's home medication diltiazem, hydrochlorothiazide, and losartan -monitor blood pressure 8. Left hand 3rd and 4th digit MCP swelling and erythema, acute, not present on admission -with associated weakness of 3rd and 4th digit -x-ray of left hand did not reveal any fractures or dislocations or soft tissue swelling -will start patient on naproxen 500mg PO BID x5 days for suspicion of possible Gout. Infection unlikely -Continue intermittent icing FASTHUG Heparin 5000 units b.i.d Code status: Full Code Dispo: Patient is stable for discharge. SNF requests made to [facility] however there is a high chance of refusal given patient's ongoing ETOH and marijuana use. Otherwise, DC home with home health/walker Quality VTE Deep Vein Thrombosis/Pulmonary Embolism Present on Admission: No
[2019-03-05] MEDS: AMOXICILLIN/CLAV 875/125 MG 1 TAB PO (20:03)
[2019-03-05] MEDS: MAGNESIUM CHLORIDE 64 MG TABLET 128 MG PO (20:04)
--- NOTE | 2019-03-06 04:25 | PC.NURSE ---
Vehicle Fare Collector Note: 0015: Awake, sitting in recliner chair. Vital signs stable. IV in place in lt forearm. Pt denies pain or discomfort at this time, but states he is unsteady on his feet. 0030: Assisted up to bathroom with walker. Had loose brown stool.
[2019-03-06 05:06] VITALS: BP 106/73; PULSE 83; RESP 18; TEMP 37.5; O2SAT 97
[2019-03-06 05:51] LABS: Add Manual Diff / Slide Review NO; Basophils Absolute Auto 100 /uL (0-100); Basophils Percent Auto 0.7 % (0-2); Eosinophils Absolute Auto 200 /uL (0-450); Eosinophils Percent Auto 2.6 % (2-4); Hematocrit 31.9 % (41-53); Lymphocytes Absolute Auto 1600 /uL (1100-4500); Lymphocytes Percent Auto 17.2 % (25-40); Mean Corpuscular HGB Conc 34.6 % (30-36); Mean Corpuscular Hemoglobin 34.4 PG (26-34); Mean Corpuscular Volume 99.4 fL (80-100); Monocytes Absolute Auto 1000 /uL (0-900); Monocytes Percent Auto 11.3 % (3-14); Neutrophils Absolute Auto 6300 /uL (1500-7000); Neutrophils Percent Auto 68.2 % (50-75); Platelet Count 308 X10^3/uL (150-400); Red Blood Cell Count 3.21 X10^6/uL (4.5-5.9); Red Cell Distribution Width 12.5 % (11.6-14.8); White Blood Cell Count 9.2 X10^3/uL (4.5-11.0)
[2019-03-06 06:03] LABS: Magnesium 1.5 mg/dL (1.6-2.3)
[2019-03-06 06:17] LABS: BUN Creatinine Ratio 18.6 (6-22); Blood Urea Nitrogen 13 mg/dL (9-20); Calcium 8.3 mg/dL (8.4-10.2); Carbon Dioxide 21 mmol/L (22-32); Chloride 106 mmol/L (98-107); Estimated Glomerular Filt Rate > 60.0 mL/min (>60); Glucose 107 mg/dL (80-110); HEMOLYSIS < 15 (0-50); Potassium 3.9 mmol/L (3.4-5.1); Sodium 138 mmol/L (137-145)
[2019-03-06 08:15] VITALS: BP 113/78; PULSE 87; RESP 18; TEMP 36.5; O2SAT 98
--- NOTE | 2019-03-06 09:30 | OT.IP.TRT ---
Current Diagnoses Hypokalemia (03/02/19) Alcohol dependence with withdrawal delirium (03/02/19) Acute kidney failure, unspecified (03/02/19) Occupational Therapy Treatment Note M2 OT-IP Current Condition Start: 03/05/19 11:38 Freq: Status: Active Protocol: Document 03/05/19 11:25 PJM (Rec: 03/05/19 12:11 PJ [id number]) Occupational Therapy Current Condition Current Condition Evaluation Date 03/05/19 Treatment Diagnosis decr'd self care, mobility, cognition; DX:ETOH WD s/p intubation,PNA,sepsis Diagnosis Onset Date 03/02/19 Post Operative Precautions Other Precautions fall risk M3 OT- IP Subjective and Pain Start: 03/05/19 11:38 Freq: Status: Active Protocol: Document 03/06/19 09:30 PJM (Rec: 03/06/19 10:55 PJ [id number]) OT- Subjective Occupational Therapy Visit Type Type Treatment Note Visit Start Time 09:05 Visit Stop Time 09:30 Total Visit Minutes 25 Notes Pt awake and alert in chair and recalls this therapist from yesterday. Occupational Therapy Visit Comments Patient Comments I finally got some sleep. Patient/Caregiver Goals to get stronger before going home OT Pain Assessment Pain When Pain Assessed After Treatment Pain Present Pain Present Denied Pain M4 OT- IP ADL's Start: 03/05/19 11:38 Freq: Status: Active Protocol: Document 03/06/19 09:30 PJM (Rec: 03/06/19 10:55 [facility] [id number]) OT [id number] General Evaluation Self-Feeding Ability Independent OT ADL-Grooming General Evaluation Grooming Ability Standby Assistance Areas Needing Assistance Combing/Brushing Hair Comments OT Grooming Comments standing at sink with FWW for total of 4 min with no LOB OT ADL-Oral Care General Eval Areas of Assistance Brushing Teeth Comments Oral Care Comments standing at sink with FWW for total of 4 min with no LOB; good thoroughness OT ADL-Dressing General Eval Lower Body Dressing Ability Standby Assistance Areas Needing Assistance Retrieving/Set-up of Clothing Underpants/Brief Socks Comments OT Dressing Comments CGA for balance when standing to pull pants over hips OT ADL-Toileting Comments OT Toileting Comments did not occur this session M6 OT- IP Functional Cognition Start: 03/05/19 11:38 Freq: Status: Active Protocol: Document 03/06/19 09:30 PJM (Rec: 03/06/19 10:55 [facility] [id number]) Cognitive Factors Limiting Selfcare Function Cognitive Ability Level of Alertness Alert Patient Orientation Name Month Date Year Place Situation Attention Span Ability Capable of Focused Attention Capable of Sustained Attention Ability to Follow Commands Able to Follow One Step Commands Safety Awareness No Deficits Noted Problem Solving Ability Needs Assist to Identify Solutions Cognitive Comments Cognitive Assessment Comments Pt much more oriented today and able to state month, date, year and place without cues. Pt able to recall watching presidential candidate debates from last night including names of candidates and details. M7 OT- IP Mobility and Balance Start: 03/05/19 11:38 Freq: Status: Active Protocol: Document 03/06/19 09:30 PJM (Rec: 03/06/19 10:55 [facility] [id number]) OT-Transfer Assessment Sit to and From Stand Sit to and from Stand Contact Guard Assistance Transfers Transfer Ability Contact Guard Assistance Technique Transfer Destination Chair Transfer Technique Stand Step Pivot Devices Transfer Assistive Devices Gait Belt Front Wheeled Walker OT- Gait Assessment Gait Gait Assistance Required: Contact Guard Assist 1 Person Assist Distance (Feet) 30 Assistive Devices Assistive Device Gait Belt Front Wheeled Walker Comments Gait Ability Comments moves slowly and careful with decreased step length OT- Balance Assessment Sitting Balance and Reactions Static Sitting Balance Ability Good Dynamic Sitting Balance Ability Good Standing Balance and Reactions Static Standing Balance Ability Good Dynamic Standing Balance Ability Fair M9 OT- IP Assessment and Plan Start: 03/05/19 11:38 Freq: Status: Active Protocol: Document 03/06/19 09:30 PJM (Rec: 03/06/19 10:55 [facility] [id number]) OT Summary Assessment and Plan Potential Rehabilitation Potential Good Summary OT Impairments Strength Balance Functional Mobility Grooming Dressing Toileting Bathing Toilet Transfers Shower Transfers Assessment Summary Pt making good daily progress with much improved orientation and pt now recalling day to day events. Pt also making progress with activity tolerance, but remains far below his baseline level of function. Per chart notes, cannot provide any assist to pt at home as she is recovering from shoulder dislocation. Pt is excellent candidate for short term rehab stay at SNF as he needs to be independent with with all self care, including shower, and light IADLS such as meal prep before he returns home. Pt is very pleasant, cooperative and motivated to improve. Goals Grooming Goal Independent Dressing Goal Independent Toileting Goal Independent Bathing Goal Standby Assistance Toilet Transfer Goal Independent Shower Transfer Goal Standby Assistance Patient/Caregiver Education Goal Demonstrate Energy Conservation and Pacing OT-Other Goals Grooming to be done standing at sink with good safety awareness and no LOB. Pt to be consistently oriented and scores to be WNL on cognitive screen. Days to Meet Goals 6 Frequency of Treatment Frequency Of Treatment Once a Day Treatment Plan OT Treatment Plan ADL Training Functional Cognition Training Functional Mobility Patient/Family Education Discharge Planning Discharge Recommendations OT Discharge Recommendations SNF Rehab
[2019-03-06] MEDS: HEPARIN 5,000 UNIT/ML VIAL 5000 UNIT SUBCUT (10:05)
--- NOTE | 2019-03-06 10:05 | PM.DS.1 ---
History of Present Illness Date Patient Seen: 03/02/19 Chief complaint: Direct Admit - Alcohol withdrawal Narrative: Written by Angelic FIGUEROA: Maverick Lopez is a 68-year-old male who was a direct admission/transfer from the [facility] emergency department. Request for transfer has been made due to the the patient being intubated and no beds are available in the [facility] intensive care unit. Per the emergency department provider Dr. Wero Tejeda, the patient was found by his to be irritable and with tremors. Per the , the patient drinks approximately 1 pint of whiskey per day and he stopped drinking 3 days ago. She contacted EMS they came and saw the patient and they administered [address] on the way to the hospital. At that time they reported he was hypoxic, tachycardic, and tachypneic and arrived to the emergency department with a [place] coma Scale of 6. Discharge Providers Date of admission: 03/02/19 03:24 Discharge Date: 04/05/19 Consults: 03/02/19 05:27 Consult to Dietitian, Adult Routine Comment: Reason For Exam: Concern for malnutrition, intubated 03/02/19 06:04 Consult to Necktie Maker Routine Comment: ETOH withdrawal 03/02/19 06:11 Consult to Respiratory Therapy Evaluate & Treat Comment: Vented Physician Instructions: Evaluate and treat 03/03/19 08:01 Consult to Dietitian, Adult Routine Comment: Reason For Exam: tube feedings, malnutrition 03/04/19 14:39 Consult to Occupational Therapy Evaluate & Treat Comment: Physician Instructions: Evaluate and treat Consult to Physical Therapy Evaluate & Treat Comment: Physician Instructions: Evaluate and Treat Discharge provider: Shirin Starr DO Summary Discharge Diagnosis: 1. Acute alcohol withdrawal with delirium tremens, present on admission. Resolved. 2. Acute hypoxemic respiratory failure, present on admission but. Resolved. 3. Chronic alcohol abuse with severe metabolic derrangements, secondary to beer potomania, present on admission. Improved and stable. 4. Acute left hand 3rd and 4th digit MCP swelling and erythema, not present on admission. Improving. 5. Acute sepsis likely due to aspiration pneumonia, present on admission. Resolved. 6. Acute kidney injury, present on admission. Resolved. 7 Acute hyperglycemia, present on admission. Resolved. 8. Hypertension, chronic, present on admission. Stable. Hospital Course: Juan Manuel Montez is a 68-year-old male with a past medical history significant for hypertension and alcohol abuse who was transferred from [facility] Emergency Department for acute alcohol withdrawal requiring sedation and intubation. He was admitted to the ICU for further management. He is now status post successful extubation 03/04. 1. Acute alcohol withdrawal with delirium tremens, present on admission. Resolved. -Patient required intubation for airway protection at the [facility] ED. The patient is status post extubation on 03/04/2019. -Continued CIWA protocol and frequent neuro checks while patient acutely withdrew from alcohol. Patient has not required any use of Ativan in > 24 hours and CIWA protocol has been discontinued. -Continued multivitamin, thiamine, folic acid, Slow-Mag, K-phos neutral as below. -Patient refused assistance with alcohol cessation and it is unclear if the patient is planning to resume drinking alcohol. 2. Acute hypoxemic respiratory failure, present on admission but. Resolved. -Likely due to acute alcohol withdrawal vs pneumonia. -Patient is maintaining high saturations on room air. Continued to monitor oxygen saturation closely. 3. Chronic alcohol abuse with severe metabolic derrangements, secondary to beer potomania, present on admission. Improved and stable. -Likely due to beer potomania with malabsorbtion and poor nutritional intake. -Patient was hypomagnesemic, hypokalemic, hypophosphatemic, and hypocalcemic which have resolved with daily repletion. Recommend continued monitoring outpatient and adjust supplementation as needed. -Continued multivitamin 1 tab daily, thiamine 100 mg daily, folic acid 1 mg daily, Slow-Mag 128 mg twice daily and K-Phos neutral 250 mg daily. -Continued to monitor electrolytes closely. 4. Acute left hand 3rd and 4th digit MCP swelling and erythema, not present on admission. Improving. -Patient has associated weakness of 3rd and 4th digit. -X-ray of left hand did not reveal any fractures or dislocations or soft tissue swelling -Continued naproxen 500 mg twice daily x 5 days for suspicion of possible Gout. Infection unlikely. -Continued supportive treatment including: Intermittent icing, elevation and rest. 5. Acute sepsis likely due to aspiration pneumonia, present on admission. Resolved. -Patient is hemodynamally stable with stable BP and normal temperature. -WBC 17.2->8.9->8.0->8.7, Lactate 10->1.3, Procalc negative at 0.23. -CT chest post intubation concerning for infiltrate/aspiration vs atelectasis in LLL. -Most recent chest x-ray 03/04 revealed consolidative appearance in the retrocardiac region slightly more prominent when compared to prior exam. Increased pulmonary vascularity is present. -Blood culture has no growth to date. MRSA screen negative. Viral respiratory PCR negative. Sputum cultures grew mixed resident marlo. -Continued Augmentin twice daily to complete 10 day course. 6. Acute kidney injury, present on admission. Resolved. 7 Acute hyperglycemia, present on admission. Resolved. 8. Hypertension, chronic, present on admission. Stable. -BP currently stable. -Continued patient's home medication diltiazem, hydrochlorothiazide, and losartan. -Continued to monitor blood pressure closely. Status at Discharge Overall status at discharge: patient is progressing back to baseline Exam Vital Signs (past 8 hours): - 03/06/19 05:06 03/06/19 08:15 Temperature 99.5 F 97.7 F Pulse Rate 83 87 Respiratory Rate 18 18 Blood Pressure 106/73 113/78 Pulse Oximetry 97 98 Fraction of Inspired Oxygen 25 Oxygen Delivery Method Room Air Oxygen Flow Rate 0 Narrative Exam Narrative: General: Older gentleman sitting in bedside chair and in no acute distress, appears older than stated age, well-developed, well-nourished, appropriately interactive. HEENT: Normocephalic, atraumatic. External ears without defect. Pupils equal, round, and reactive to light. Anicteric sclerae, moist conjunctivae, and no lid lag. Poor dentition. Neck: Supple with full range of motion. No jugular venous distension. No bruits. No lymphadenopathy or thyromegaly. Cardiovascular: Regular rate and rhythm without murmurs, rubs, or gallops appreciated. Pulmonary: Clear to auscultation bilaterally without crackles, wheezes, or rhonchi. Normal respiratory effort with no use of accessory muscles. Abdomen: Bowel tones present. Soft, nontender, nondistended. No hepatosplenomegaly or masses appreciated. Extremities: No clubbing, cyanosis, or edema. Skin: Normal temperature, turgor, and texture; no rash, ulcers, or subcutaneous nodules appreciated. Neurological: Cranial nerves grossly intact. Psychiatric: Normal mood and affect. Alert and oriented to person, place, and time. Objective Labs Result Diagrams: 03/06/19 05:01 03/06/19 05:01 Labs: Laboratory Results - last 24 hr 03/05/19 03/06/19 03/06/19 12:01 05:01 05:01 WBC 9.2 RBC 3.21 L Hgb 11.0 L Hct 31.9 L MCV 99.4 MCH 34.4 H MCHC 34.6 RDW 12.5 Plt Count 308 Neut % (Auto) 68.2 Lymph % (Auto) 17.2 L [place] % (Auto) 11.3 Eos % (Auto) 2.6 Baso % (Auto) 0.7 Neut # (Auto) 6300 Lymph # (Auto) 1600 [place] # (Auto) 1000 H Eos # (Auto) 200 Baso # (Auto) 100 Sodium Potassium Chloride Carbon Dioxide BUN Creatinine Estimated GFR BUN/Creatinine Ratio Glucose Calcium Phosphorus 3.0 D Magnesium 1.4 L 1.5 L 03/06/19 05:01 WBC RBC Hgb Hct MCV MCH MCHC RDW Plt Count Neut % (Auto) Lymph % (Auto) [place] % (Auto) Eos % (Auto) Baso % (Auto) Neut # (Auto) Lymph # (Auto) [place] # (Auto) Eos # (Auto) Baso # (Auto) Sodium 138 Potassium 3.9 Chloride 106 Carbon Dioxide 21 L BUN 13 Creatinine 0.70 Estimated GFR > 60.0 BUN/Creatinine Ratio 18.6 Glucose 107 Calcium 8.3 L Phosphorus Magnesium Discharge Plan Discharge Plan Patient Disposition: Home Discharge comment: You are being discharged home. Please follow-up with your primary care physician in the next 1 week regarding your hospitalization and to obtain lab work. Please abstain from alcohol indefinitely. You were provided with resources for outpatient and inpatient alcohol treatment. Recommend you attend AA meetings and seek a sponsor. You have been prescribed Augmentin twice daily for 5 additional days to complete urine pneumonia treatment. 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 Discharge Med Rec/Prescriptions Prescriptions: New multivitamin [Tab-A-Nisha] Tablet 1 tab PO DAILY Qty: 30 RF: 0 T-Flzt-Zmrgamn 250 mg Tablet 250 mg PO DAILY Qty: 30 RF: 0 folic acid 1 mg Tablet 1 mg PO DAILY Qty: 30 RF: 0 amoxicillin-pot clavulanate [Augmentin] 875-125 mg Tablet 1 tab PO BID Qty: 10 RF: 0 Slow-Mag 71.5 mg Tablet,Delayed Release (Dr/Ec) 128 mg PO BID Qty: 60 RF: 0 Continued cyclobenzaprine 10 mg Tablet 10 mg PO TID PRN (Reason: Muscle Spasm) RF: 0 diltiazem HCl [DILT-XR] 240 mg Capsule,Ext.Rel 24h Degradable 240 mg PO DAILY RF: 0 hydrochlorothiazide 12.5 mg Capsule 12.5 mg PO DAILY RF: 0 losartan 100 mg Tablet 100 mg PO DAILY RF: 0 Other Ambulatory Orders: Basic Metabolic Panel (Routine) Timeframe: 5 Days Location: Laboratory Ordered By: Shirin Starr Magnesium (Routine) Timeframe: 5 Days Location: Laboratory Ordered By: Shirin Starr Phosphorous (Routine) Timeframe: 5 Days Location: Laboratory Ordered By: Shirin Starr Provider Discharge Instructions Diet: Low-fat, Low-sodium and Low-cholesterol Activity: Activity as tolerated with walker and PT/OT. Visit Report/Discharge Packet Instructions: Cori TremOSCAR dias for Alcohol Abuse Discharge Data Attending Provider: Angelic Lucas Admit Date/Time: 03/02/19 03:24 Discharges patient from system. Discharge Date/Time: 03/06/19 18:00 Quality VTE Deep Vein Thrombosis/Pulmonary Embolism Present on Admission: No
[2019-03-06] MEDS: SODIUM CHLORIDE 0.9% FLUSH 10 ML IV (10:06)
[2019-03-06] MEDS: THIAMINE 100 MG TABLET PO (10:07)
[2019-03-06] MEDS: AMOXICILLIN/CLAV 875/125 MG 1 TAB PO (10:07)
[2019-03-06] MEDS: MAGNESIUM CHLORIDE 64 MG TABLET 128 MG PO (10:07)
[2019-03-06] MEDS: NAPROXEN 250 MG TABLET 500 MG PO (10:07)
[2019-03-06] MEDS: FOLIC ACID 1 MG TABLET PO (10:07)
[2019-03-06] MEDS: MULTIVITAMIN 1 TABLET 1 TAB PO (10:08)
[2019-03-06] MEDS: PANTOPRAZOLE 40 MG VIAL IV (10:08)
[2019-03-06] MEDS: PHOSPHA 250 NEUTRAL TABLET 250 MG PO (10:08)
[2019-03-06] MEDS: LOSARTAN 50 MG TABLET 100 MG PO (10:10)
[2019-03-06] MEDS: hydroCHLOROthiazide 12.5 MG CAPSULE PO (10:10)
[2019-03-06] MEDS: dilTIAZem CD 240 MG CAP PO (10:10)
[2019-03-06] MEDS: MAGNESIUM SULFATE 2 GM/50 ML PIGGYBACK IV (10:20)
--- NOTE | 2019-03-06 10:56 | CM.DPC ---
Addendum entered by ALMA Wall 03/06/19 15:27: ADD: SW called spouse and she confirms that her neighbor can provide transport and they will leave soon and will likely arrive to the hospital around 1700 and will bring pt's clothes. SW updated her that pt has a walker in the room for home use and that RN will go through the d/c paperwork with them. Spouse declined speaking to the pt as she just want to get on the road and get this over with. KIRILL updated pt and RN bedside and pt appreciative of the information and continues to state that he is still agreeable with d/c home today especially now that he has transport. SW confirmed that pt has the [employer] Guidebook and is aware of the earmarked pages for [email or web address] for Mental health and CD. Plan: Patient to d/c home today via neighbor POV around 1700 with provided walker. HH currently not available but pt aware how to access if needed once home. Spouse in contact with Ruchi at [facility] for additional support after d/c. ALMA Wall Addendum entered by ALMA Wall 03/06/19 15:05: ADD: Susan from [facility] [employer] [facility] called back and stated all their drivers are booked and cannot transport today but gave the number for [facility] ([phone]) based out of [place] and SW called and they confirm they do not transport off [place] and that pt would need to be a Member of their nonprofit for transport liability reasons and therefore cannot transport either. SW met bedside with pt and updated on the above information and he states he still hasn't spoken to his yet. SW attempted to call pt's spouse bedside and line was busy. PT delivered walker to pt's room for home. SW called spouse again and got through to her and updated her on the information above and she states their RN neighbor just got home and can likely provide transport but request SW to call back in 15 min. BF Addendum entered by ALMA Wall 03/06/19 14:05: ADD: Per Pamela from [facility], pt has progressed while here to where he is currently not Skillable under Medicare for SNF rehab. Pamela updated pt regarding him doing too well for SNF as pt was able to ambulate without assist and was steady with walker. SW met bedside with pt again and he confirms that he feels he can manage at home with walker and is aware that [facility] (only HH agency that covers [facility]) is currently full due to 3 staff members out at this time but HH could be an option after he gets home through his PCP. Pt is already established with outpt PT and feels comfortable continuing to strengthen with outpt therapy at this time. Pt's main concern is a ride home and requests SW look into [employer]. SW called [employer] and they confirm that pt needs to complete an application to see if he qualifies and could take up to 2 weeks. SW called [facility] for [facility] ([phone]) and spoke to Susan who will call her volunteer drivers to determine if anyone is available to provide transport for the pt. ANTHONY Adams called [employer] and confirmed that pt is currently on a $7,000 spend down before he qualifies for Medicaid services and currently does not have transport benefits. PT working on FWW orders to issue the pt a walker through Medicare prior to d/c. SW called pt's spouse and explained role again and discussed above information and spouse quite upset as she feels caught off guard with pt being ready for d/c today and not going to SNF. Spouse states the house and bedroom are messy and that she herself hasn't even showered for 2 weeks although she does not seem concerned with pt's ambulation needs or self care but more regarding the chores. SW discussed possibility of private pay caregivers or [facility] once pt meets spend down for Medicaid and also ongoing coordination with [facility] for other help. SW encouraged spouse to call friends and neighbors to confirm if anyone available to provide transport for pt home and spouse reluctantly agreeable. Plan: SW to follow closely for return call from Susan at [employer] [facility] and spouse to determine if transportation available for pt home. ALMA Wall Original Note: DCP Discharge Per MD, pt is medically stable to d/c today to SNF if [facility] can accept or home with walker. Per OT, pt could benefit from SNF rehab prior to home and was able to ambulate to the bathroom. Per PT, pt declined PT this morning as he was feeling fatigued but could safely d/c home with walker if SNF not accepting. Per February, admissions at [facility], Pamela to complete bedside assessment of pt this morning around 1000 to determine if they can accept. SW called [facility] and confirmed with Shirin in admissions that they currently have a waitlist due to many new referrals and cannot accept pt today and likely not even tomorrow Sunday and they do not accept new admits over the weekend at this time so earliest they could accept would maybe be Sunday03/10/19. SW met bedside with pt and explained role and provided the pt with his Medicare Rights and pt acknowledged understanding and signed his Medicare Message. SW discussed [facility] having a waitlist and [facility] to complete bedside assessment with him this morning. Pt confirms that he still feels SNF needed prior to home if possible. SW attempted to call spouse to update and her phone is busy. Plan: SW to follow closely today after [facility] bedside assessment to determine d/c to SNF vs home with walker. ALMA Wall
[2019-03-06 11:05] VITALS: BP 127/88; PULSE 102; RESP 18; TEMP 36.8; O2SAT 99
--- NOTE | 2019-03-06 11:11 | PT.IPTN ---
Current Diagnoses Hypokalemia (03/02/19) Alcohol dependence with withdrawal delirium (03/02/19) Acute kidney failure, unspecified (03/02/19) Physical Therapy Treatment Note M2 PT-IP Current Condition Start: 03/04/19 15:48 Freq: NEEDED Status: Active Protocol: Document 03/05/19 11:20 AB (Rec: 03/05/19 12:24 AB [id number]) Physical Therapy Current Condition Current Condition Evaluation Date 03/05/19 Treatment Diagnosis acute kidney injury; alcohol withdrawal; difficulty in walking Onset Date 03/02/19 M3 PT-IP Subjective Start: 03/04/19 15:48 Freq: NEEDED Status: Active Protocol: Document 03/06/19 11:11 GGD (Rec: 03/06/19 11:11 GGD [id number]) Subjective Physical Therapy Visit Type Type Patient Refusal Notes Pt refused states that he been up a lot. Will see in PM. Discharge
[2019-03-06 15:35] VITALS: BP 120/76; PULSE 91; RESP 18; TEMP 36.9; O2SAT 100
--- NOTE | 2019-03-06 17:39 | PC.NURSE ---
Addendum entered by Valeria Santiago R.N. 03/06/19 18:19: Pt was assisted to dress by [employer] following arrival of pt's female family member and additional female. Pt escorted to private vehicle via wheelchair with personal belongings and walker accounted for. Pt left hospital in stable condition. Original Note: Pt up in chair with chair alarm in place. Awake, alert, conversant. Discharge instructions reviewed with pt in written and verbal format. Provided pt with five prescriptions and placed in blue folder. Pt's home/own meds retrieved from pharmacy and given to pt. Awaiting pt's ride to home and clothing to arrive. IV dc'd intact.
--- NOTE | 2019-03-06 18:15 | PT.IPTN ---
Current Diagnoses Hypokalemia (03/02/19) Other disorders of electrolyte and fluid balance, not elsewhere classified (03/02/19) Alcohol dependence with withdrawal delirium (03/02/19) Acute kidney failure, unspecified (03/02/19) Physical Therapy Treatment Note M2 PT-IP Current Condition Start: 03/04/19 15:48 Freq: NEEDED Status: Active Protocol: Document 03/05/19 11:20 AB (Rec: 03/05/19 12:24 AB [id number]) Physical Therapy Current Condition Current Condition Evaluation Date 03/05/19 Treatment Diagnosis acute kidney injury; alcohol withdrawal; difficulty in walking Onset Date 03/02/19 M3 PT-IP Subjective Start: 03/04/19 15:48 Freq: NEEDED Status: Active Protocol: Document 03/06/19 18:08 [facility] (Rec: 03/06/19 18:15 [facility] [id number]) Subjective Physical Therapy Visit Type Type Treatment Note Visit Start Time 13:10 Visit Stop Time 13:45 Total Visit Minutes 35 Number of COMPLIANCE PROFESSIONAL Visits 0 Physical Therapy Visit Comments Patient Comments pt agreeable to do PT with some encouragement M4 PT-IP Mobility and Gait Start: 03/04/19 15:48 Freq: NEEDED Status: Active Protocol: Document 03/06/19 18:08 [facility] (Rec: 03/06/19 18:15 [facility] [email or web address]) PT-Transfer Assessment Sit to and From Stand Sit to and from Stand Standby Assistance Equipment Transfer Assistive Device Gait Belt Front Wheeled Walker Comments Mobility Comments Pt stood from chair & from toilet SBA Gait Assessment Gait Gait Assistance Required: Contact Guard Assist Minimum Assistance Distance (Feet) 50 Able to Maintain Weight Bearing Status Yes During Gait Assistive Devices Assistive Device Gait Belt Front Wheeled Walker Orthotic/Prosthetic Devices or Brace: No Gait Deviations General Gait Pattern Antalgic Decreased Stride Length Decreased Feet Clearance Flexed Trunk Factors Limiting Gait Function Factors Limiting Gait Function Decreased Activity Tolerance Decreased Strength Poor Balance Poor Safety Awareness Comments Gait Comments Pt amb about 20ft to step to do step up and had one LOB where he required min A to recover. He then amb to bathroom where he pulled down his pants indep and was able to wipe and change his brief with SBA. Stair Climbing Assessment Evaluation Level of Assist On Stairs Contact Guard Assistance Devices Stair Climbing Assistive Devices Left Railing Right Railing Technique/Endurance Stair Climbing Direction Ascend and Descend Stair Climbing Technique Step to Step Number of Steps Climbed 3 M5 PT-IP Objective Assessments Start: 03/04/19 15:48 Freq: NEEDED Status: Active Protocol: Document 03/05/19 11:20 AB (Rec: 03/05/19 12:24 AB [id number]) Orientation Orientation/Cognition Level of Alertness Alert Orientation Name Place Situation Language Function Ability No Deficits Noted Gross Range of Motion Upper Extremity ROM Impairments nurse stated that MD requested assessment of L 3rd/4th fingers as pt is unable to straighten the. assessed L hand. (+) MCP joint edema and erythema. 3rd/4th/5th MCP in flexion but PIP and DIP in extension. pt unable to actively move MCP to extension . PROM WNL but pt c/o pain. Pt able to actively do MCP flexion. Pt presents with trigger fingers and possible gout on MCP joints particularly 3rd/4th and 5th digits. Lower Extremity ROM Assessment Within Functional Limits Strength Upper Extremity Strength Assessment Left Impaired Lower Extremity Strength Assessment Bilaterally Impaired Hip 4-/5 Knee 4-/5 Coordination Assessment Gross Coordination Gross Coordination WNL Muscle Tone Muscle Tone WNL Yes M6 PT-IP Treatment Start: 03/04/19 15:48 Freq: NEEDED Status: Active Protocol: Document 03/06/19 18:08 [facility] (Rec: 03/06/19 18:15 [facility] [email or web address]) Physical Therapy Treatment Education Education Provided Safety Other Treatments Other Treatment Performed edu on device use and importance of getting one before home. Decided to get one administered to him from hospital d/t no walker at home and inability to get his own until after he was home. M7 PT-IP Assessment and Plan Start: 03/04/19 15:48 Freq: NEEDED Status: Active Protocol: Document 03/06/19 18:08 [facility] (Rec: 03/06/19 18:15 [facility] [email or web address]) PT Summary Assessment and Plan Summary Impairments ROM Strength Balance Bed Mobility Transfers Gait Activity Tolerance Assessment Summary Pt required assistance to walk as he is unsafe alone and lost his balance. and CM was notifed of this and that pt was unaware that he was fecally incontinent in his brief. He was able to do all amb & step with CGA. Goals Bed Mobility Goal Independent Transfer Goal Independent Front Wheeled Walker Gait Goal Independent Front Wheel Walker Gait Distance 200 Other Goals ambulation without AD ~ 150 ft up/down 3 steps using B rails SBA Days to Meet Goals 10 Frequency of Treatment Frequency Of Treatment Once a Day Treatment Plan Physical Therapy Treatment Plan Bed Mobility Training Transfer Training Gait Training Therapeutic Exercise Balance Retraining Discharge Planning Hot or Cold Pack Neuromuscular Re-ed Coordination Retraining Manual Therapy Other Recommendations and Next Treatment ambulation, stair climbing Focus training Recommendations To Nursing Amount of Assist Needed 1 Person Assist Discharge Recommendations PT Discharge Recommendations Home with Assistance Home Health SNF Rehab Equipment Needed for Home Before FWW was to be administered Discharge before d/c
== END 2019-03-06 18:00 | disposition home or self-care (01) | DRG 871 ==
LOC: ICU 03-05 09:02 → AC 03-05 15:27
PROVIDERS: Internal Medicine; Admitting Provider Nurse Practitioner Family; Visit Provider Nurse Practitioner Family
DX: A41.9 Sepsis, unspecified organism (principal); J69.0 Pneumonitis due to inhalation of food and vomit; R40.2113 Coma scale, eyes open, never, at hospital admission; R40.2213 Coma scale, best verbal response, none, at hospital admission; J96.00 Acute respiratory failure, unspecified whether with hypoxia or hypercapnia; F10.231 Alcohol dependence with withdrawal delirium; G40.89 Other seizures; N17.9 Acute kidney failure, unspecified; R65.20 Severe sepsis without septic shock; R40.2333 Coma scale, best motor response, abnormal flexion, at hospital admission; E83.51 Hypocalcemia; E87.6 Hypokalemia; E83.42 Hypomagnesemia; E83.39 Other disorders of phosphorus metabolism; L53.8 Other specified erythematous conditions; M25.442 Effusion, left hand
CPT/HCPCS: 36415; 36600; 71045; 73130; 80048; 80053; 82805; 82962; 83605; 83735; 84100; 84145; 84478; 84484; 85025; 87040; 87070; 87205; 87400; 87633; 87797; 93005; 93010; 94002; 94003; 94770; 94799; 97116; 97161; 97165; 97530; 97535; C9113; J0610; J1644; J2060; J2704; J3010; J3480